=== PATIENT | male | born 1940 | race Caucasian/White ===

== ENCOUNTER 2017-06-10 09:36 | Inpatient (IN) | payer MEDICARE, MEDICAID ==
[~2017-06-10] VITALS: Ht 167.6 cm; Wt 80.0 kg
[2017-06-10] MEDS: ACCU-CHEK XX SCH (02:00)
[~2017-06-10 09:36] MED LIST: GLIP5TAB13 PO; METF500T4 PO
[2017-06-10] MEDS ORDERED: LIDOCAINE/MYLANTA 40 ML BTL PO STA (09:47)
[2017-06-10] MEDS ORDERED: FAMOTIDINE 20 MG TAB PO STA (09:47)
[2017-06-10] MEDS ORDERED: SOD CHLORIDE 0.9% 500 ML IV STA (09:47)
[2017-06-10] MEDS ORDERED: ONDANSETRON 4 MG INJ IV STA (09:47)
--- NOTE | 2017-06-10 09:54 | ERD ---
ER Documentation Chief Complaint Chief Complaint epigastric pain HPI This is a 76-year-old male with a history of autism, previous CVA, diabetes, hypertension, chronic kidney disease, issues with urinary retention who is presenting with epigastric and chest pain, nonradiating, waxing/waning for approximately 1 week. He does not endorse feeling sick recently. He has had no fever or chills. He has had no nausea or vomiting. He denies shortness of breath. He denies changing to bowel movements or urination. He reports that he took all of his medications this morning. He is perseverating and calling out for his mold filler and drainer, but he is redirectable. ROS All systems reviewed and are negative except as per history of present illness. Medications Home Meds Reported Medications Trazodone Hcl* (Trazodone Hcl*) 50 Mg Tablet, 100 MG PO QHS, #30 TAB 06/10/17 Alprazolam* (Alprazolam*) 0.25 Mg Tablet, 0.25 MG PO BID Y for ANXIETY, TAB 06/10/17 Lisinopril* (Lisinopril*) 20 Mg Tablet, 20 MG PO DAILY, #30 TAB 06/10/17 Metoprolol Succinate* (Toprol XL*) 100 Mg Tab.sr.24h, 100 MG PO DAILY, #30 TAB 06/10/17 Glipizide* (Glipizide*) 5 Mg Tablet, 5 MG PO AC BREAKFAST, TAB 04/02/15 Metformin Hcl* (Metformin Hcl*) 500 Mg Tablet, 500 MG PO BID WITH MEALS, TAB 04/02/15 Allergies Allergies: Coded Allergies: No Known Allergy (Unverified , 06/10/17) PMhx/Soc History of Surgery: Yes (RAdical prostatectomy) Anesthesia Reaction: No Hx Neurological Disorder: Yes (CVA) Hx Respiratory Disorders: No Hx Cardiac Disorders: Yes (HYPERTENSION) Hx Psychiatric Problems: Yes (MILD MENTAL RETARDATION) Hx Miscellaneous Medical Probl: Yes (S/P CVA, HTN, DM, URINARY RETENTION, CKD2) Hx Alcohol Use: No Hx Substance Use: No Hx Tobacco Use: No FmHx Family History: diabetes Physical Exam Vitals Vital Signs Date Time Temp Pulse Resp B/P Pulse Ox O2 Delivery O2 Flow Rate FiO2 06/10/17 19:55 64 20 127/50 99 Room Air 06/10/17 19:22 194/91 06/10/17 18:36 59 20 183/83 99 Room Air 06/10/17 17:45 68 20 183/80 100 Room Air 06/10/17 16:00 62 20 176/63 99 Room Air 06/10/17 11:05 61 18 185/100 99 Room Air 06/10/17 09:53 97.9 80 18 187/97 100 Physical Exam Const: No apparent distress, well-developed, well-nourished Head: Atraumatic Eyes: Normal Conjunctiva. Extraocular movements intact. ENT: Normal External Ears, Nose and Mouth. no teeth. Neck: Full range of motion. ~ No meningismus. Resp: Clear to auscultation bilaterally Cardio: Regular rate and rhythm, no murmurs. Patient is hypertensive. Abd: Soft, non distended. +epigastric tenderness. Normal bowel sounds Skin: No petechiae or rashes Back: No midline or flank tenderness Ext: No cyanosis, or edema Neur: Awake and alert. Cranial nerves intact. No facial droop. Normal strength and sensation in all extremities. Coordination with finger to nose normal. Psych: Normal Mood and Affect Result Diagram: 06/10/17 0900 06/10/17 09 Results 24 hrs Laboratory Tests Test 06/10/17 09:00 06/10/17 18:55 06/10/17 19:27 06/10/17 20:10 White Blood Count 10.710^3/ul Red Blood Count 4.7810^6/ul Hemoglobin 14.2g/dl Hematocrit 41.5% Mean Corpuscular Volume 86.8fl Mean Corpuscular Hemoglobin 29.7pg Mean Corpuscular Hemoglobin Concent 34.2g/dl Red Cell Distribution Width 12.1% Platelet Count 97333^3/UL Mean Platelet Volume 11.1fl Neutrophils % 82.5% Lymphocytes % 9.4% Monocytes % 6.8% Eosinophils % 0.5% Basophils % 0.4% Nucleated Red Blood Cells % 0.0/100WBC Neutrophils # 8.910^3/ul Lymphocytes # 1.010^3/ul Monocytes # 0.710^3/ul Eosinophils # 0.110^3/ul Basophils # 0.010^3/ul Nucleated Red Blood Cells # 0.010^3/ul Prothrombin Time 13.4Sec Prothrombin Time Ratio 1.0 INR International Normalized Ratio 1.02 Sodium Level 145mmol/L Potassium Level 3.4mmol/L Chloride Level 102mmol/L Carbon Dioxide Level 29mmol/L Anion Gap 17 Blood Urea Nitrogen 23mg/dl Creatinine 1.21mg/dl Glucose Level 175mg/dl Lactic Acid Level 2.0mmol/L Calcium Level 9.7mg/dl Total Bilirubin 0.4mg/dl Direct Bilirubin 0.00mg/dl Indirect Bilirubin 0.4mg/dl Aspartate Amino Transf (AST/SGOT) 20IU/L Alanine Aminotransferase (ALT/SGPT) 29IU/L Alkaline Phosphatase 48IU/L Troponin I 0.051ng/ml 0.050ng/ml Total Protein 6.9g/dl Albumin 4.2g/dl Globulin 2.70g/dl Albumin/Globulin Ratio 1.55 Lipase 93U/L Bedside Glucose 121mg/dL 99mg/dL Current Medications Medications (Trade) Dose Ordered Sig/Lucy Route PRN Reason Start Time Stop Time Status Last Admin Dose Admin Sodium Chloride (NS) 500 ml @ 500 mls/hr Q1H STAT IV 06/10/17 09:47 06/10/17 10:46 DC 06/10/17 10:17 Ondansetron HCl (Zofran Inj) 4 mg ONCE STAT IV 06/10/17 09:47 06/10/17 09:48 DC 06/10/17 10:19 Famotidine (Pepcid) 20 mg ONCE STAT PO 06/10/17 09:47 06/10/17 09:48 DC 06/10/17 10:16 Miscellaneous Medication (Gi Cocktail (2)) 40 ml ONCE STAT PO 06/10/17 09:47 06/10/17 09:48 DC 06/10/17 10:18 Lorazepam (Ativan) 0.5 mg ONCE ONCE IV 06/10/17 11:00 06/10/17 11:01 DC 06/10/17 10:39 Fentanyl (Sublimaze) 50 mcg ONCE ONCE IV 06/10/17 14:00 06/10/17 14:01 DC 06/10/17 13:56 Ondansetron HCl (Zofran Inj) 4 mg ER BRIDGE PRN IV NAUSEA AND/OR VOMITING 06/10/17 15:00 06/11/17 14:59 Acetaminophen (Tylenol Tab) 650 mg ER BRIDGE PRN PO MILD PAIN/FEVER 06/10/17 15:00 06/11/17 14:59 Ondansetron HCl (Zofran Inj) 4 mg Q6H PRN IV NAUSEA AND/OR VOMITING 06/10/17 15:00 Acetaminophen (Tylenol Tab) 650 mg Q6H PRN PO PAIN LEVEL 1-3 OR FEVER 06/10/17 15:00 Acetaminophen/ Hydrocodone Bitart ([place] (5/325)) 1 tab Q6H PRN PO MODERATE PAIN LEVEL 4-6 06/10/17 15:00 Acetaminophen/ Hydrocodone Bitart ([place] (5/325)) 2 tab Q6H PRN PO SEVERE PAIN LEVEL 7-10 06/10/17 15:00 Docusate Sodium (Colace) 100 mg Q12H PRN PO CONSTIPATION 06/10/17 15:00 Magnesium Hydroxide (Milk Of Mag) 30 ml DAILY PRN PO CONSTIPATION 06/10/17 15:00 Heparin Sodium (Porcine) (Heparin (5000 Units/0.5 ml)) 5,000 unit Q12 SC 06/10/17 21:00 Lisinopril (Zestril) 20 mg DAILY PO 06/11/17 09:00 Metoprolol Succinate (Toprol Xl) 50 mg DAILY PO 06/11/17 09:00 Miscellaneous Information (* Miscellaneous Pharmacy Order) Discontinue current oral sulfonylur... ONCE ONCE XX 06/10/17 15:00 06/10/17 15:08 DC Diagnostic Test (Pha) (Accu-Chek) 1 ea 02 XX 06/11/17 02:00 Diagnostic Test (Pha) (Accu-Chek) 1 ea 2 HOURS AFTER MEALS XX 06/10/17 20:00 Insulin Aspart (Novolog Insulin Pen) 4 unit WITH MEALS SC 06/10/17 18:00 06/10/17 18:00 Miscellaneous Information (* Miscellaneous Pharmacy Order) HYPOGLYCEMIA PROTOCOL w... ONCE ONCE XX 06/10/17 15:00 06/10/17 15:10 DC Trazodone HCl (Desyrel) 50 mg QHS PRN PO for insomnia 06/10/17 15:00 Potassium Chloride (Klor-Con 20) 20 meq ONCE STAT PO 06/10/17 15:00 06/10/17 15:16 DC 06/10/17 15:25 Lorazepam (Ativan) 0.5 mg ONCE ONCE IV 06/10/17 15:30 06/10/17 15:31 DC 06/10/17 15:25 Miscellaneous Information 1 ea NOTE XX 06/10/17 15:30 Glucose (Glutose) 15 gm Q15M PRN PO DECREASED GLUCOSE 06/10/17 15:30 Glucose (Glutose) 22.5 gm Q15M PRN PO DECREASED GLUCOSE 06/10/17 15:30 Dextrose (D50w Syringe) 25 ml Q15M PRN IV DECREASED GLUCOSE 06/10/17 15:30 Dextrose (D50w Syringe) 50 ml Q15M PRN IV DECREASED GLUCOSE 06/10/17 15:30 Glucagon (Glucagen) 1 mg Q15M PRN IM DECREASED GLUCOSE 06/10/17 15:30 Glucose (Glutose) 15 gm Q15M PRN BUCCAL DECREASED GLUCOSE 06/10/17 15:30 Lorazepam (Ativan) 0.5 mg Q4 PRN PO ANXIETY 06/10/17 16:00 Morphine Sulfate (morphine) 4 mg ONCE STAT IV 06/10/17 19:05 06/10/17 19:08 DC 06/10/17 19:55 Hydralazine HCl (Apresoline) 10 mg ONCE ONCE IV 06/10/17 20:00 06/10/17 20:01 DC 06/10/17 19:43 Procedures/MDM MDM Patient's presentation warrants further investigation. He does endorse abdominal and chest pain. An abdominal workup will be performed. A cardiac workup will also be performed to evaluate for any signs of atypical chest pain. LABS The patient's blood work was obtained and reviewed. The patient seemed shows no leukocytosis, but he does have a left shift. The patient is afebrile, and I do not suspect a systemic infection. The patient is not anemic today. The patient's platelet count is unremarkable. The patient's CMP shows mild hypokalemia. Creatinine is elevated but at baseline. The patient's troponin is also elevated, but this is elevated in the setting chronic kidney disease. The patient has normal hepatic function testing. INR is normal. Lactic is right at 2.0. EKG EKG read by me: Rate/Rhythm: Regular rate and rhythm at a rate of 75 Intervals: Normal RI, QRS, QTc. RBBB present. [place]: Normal Impression: No evidence of ischemia or arrhythmia IMAGING CXR FINDINGS: There is a right sided aortic arch. The heart is normal in size. The pulmonary vessels are normal in caliber. The lungs are clear. The costophrenic angles are sharp. The visualized bony thorax is unremarkable. IMPRESSION: No acute cardiopulmonary disease. Right sided aortic arch Electronically viewed and signed by .Wm Woodall MD, on 06/10/2017 10:04 CT Abd/Pelvis IMPRESSION: 1. Cholelithiasis. 2. Advanced arteriosclerosis in the mesenteric and renal arteries. 3. Mild atherosclerosis of the aorta. 4. Multiple bilateral sub centimeter nonobstructive renal calculi 5. Satisfactory position of Silveira catheter. 6. Nonvisualization of prostate gland. Surgical domenico and prostate bed suggesting previous prostatectomy. 7. No mass, lymphadenopathy, or focal acute inflammatory process is identified. Electronically viewed and signed by .Bobby Montalvo MD, MD on 06/10/2017 18: 38 TREATMENT/DISPOSITION The patient was very anxious in the room as his friend was not immediately present in the ER. He started to become hypertensive as well, though he reports taking all of his morning medications. He was given ativan to help calm his nerves. His mold filler and drainer also arrived which also helped to calm him. His blood pressure improved significantly. However, his pain persisted. The patient's lactic acid was at 2.0 which is borderline. A CT of his abdomen and pelvis was performed that did not reveal an obvious etiology of his epigastric pain. The patient's troponin is elevated. While this may be attributed to his poor renal function, a cardiac etiology must be ruled out. The patient will be admitted for further evaluation and management. The patient was admitted to his PCP group as per his insurance status at 14:30 on June 10, 2017. Departure Diagnosis: Primary Impression: Epigastric abdominal pain Additional Impressions: Chest pain Chest pain type: unspecified Qualified Code: R07.9 - Chest pain, unspecified type CKD (chronic kidney disease) Chronic kidney disease stage: unspecified stage Qualified Code: N18.9 - Chronic kidney disease, unspecified CKD stage Elevated troponin Condition: MIKE Perrin MD Jun 10, 2017 09:54
--- NOTE | 2017-06-10 10:04 | RADRPT ---
PROCEDURE: Chest x-ray CLINICAL INDICATION: Abdominal pain TECHNIQUE: Chest single view COMPARISON: 04/02/2015 FINDINGS: There is a right sided aortic arch. The heart is normal in size. The pulmonary vessels are normal i n caliber. The lungs are clear. The costophrenic angles are sharp. The visualized bony thorax is unremarkable. IMPRESSION: No acute cardiopulmonary disease. Right sided aortic arch RPTAT: HH .Wm Woodall MD, MD Date Time Electronically viewed and signed by .Wm Woodall MD, on 06/10/2017 10:04 .W/
[2017-06-10] MEDS ORDERED: LORAZEPAM 2 MG INJ IV ONE ×2 (11:00→15:30)
[2017-06-10] MEDS ORDERED: METO-336 PO (13:48)
[2017-06-10] MEDS ORDERED: LISI20TA11 PO (13:50)
[2017-06-10] MEDS ORDERED: TRAZ50TA18 PO (13:51)
[2017-06-10] MEDS ORDERED: ALPR0.254 PO (13:51)
[2017-06-10] MEDS ORDERED: FENTAnyl 50 MCG/ML VIAL IV ONE (14:00)
[2017-06-10] MEDS ORDERED: ACETAMINOPHEN 325 MG TAB PO PRN ×2 (15:00)
[2017-06-10] MEDS ORDERED: traZODone 50 MG TAB PO PRN (15:00)
[2017-06-10] MEDS ORDERED: DOCUSATE SODIUM 100 MG CAP PO PRN (15:00)
[2017-06-10] MEDS ORDERED: Discontinue current oral sulfonylureas (glyburide, glipizide, and/or glimepiride) prior to XX ONE (15:00)
[2017-06-10] MEDS ORDERED: HYPOGLYCEMIA PROTOCOL when Glucose is <70 mg/dL or symptomatic <90 mg/dL. XX ONE (15:00)
[2017-06-10] MEDS ORDERED: MAGNESIUM HYDROXIDE 30ML CUP PO PRN (15:00)
[2017-06-10] MEDS ORDERED: POTASSIUM CHLORIDE (SR) 20 MEQ TAB PO STA (15:00)
[2017-06-10] MEDS ORDERED: ONDANSETRON 4 MG INJ IV PRN ×2 (15:00)
[2017-06-10] MEDS ORDERED: GLUCAGON 1 MG INJ IM PRN (15:30)
[2017-06-10] MEDS ORDERED: GLUCOSE GEL 15 GRAM TUBE PO PRN ×2 (15:30)
[2017-06-10] MEDS ORDERED: DEXTROSE 50% 50 ML SYRINGE IV PRN ×2 (15:30)
[2017-06-10] MEDS ORDERED: GLUCOSE GEL 15 GRAM TUBE BUCCAL PRN (15:30)
--- NOTE | 2017-06-10 15:46 | HP ---
Date/Time of Note Date/Time of Note DATE: 06/10/17 TIME: 15:34 Assessment/Plan VTE Prophylaxis VTE Prophylaxis Intervention: heparin Assessment/Plan Chief Complaint/Hosp Course 76 y/o male with autism, DMII, HTN, CKD, h/o CVA admitted for epigastric pain and chest pain. Problems: Assessment/Plan #chest pain/abdominal pain-patient is poor historian. reassuring that vital signs stable, he is non toxic appearing, benign abdominal exam. Labs also not concerning for acute abdominal process. Initial trop and EKG not concerning for ACS. -will monitor on tele overnight. -will trend EKG/trop -will obtain UA, will repeat cbc, cmp in am #hypokalemia-mild -will replete and monitor #anxiety-ED setting not helping -ativan prn #HTN-controlled as outpatient, will initially elevated -home meds -pain control #DMII -sliding scale #CKD-baseline 1.2-1.4 -avoid nephrotoxic meds -maintain euvolemia Dispo: pending clinical stability/improvement can possibly be discharged tomorrow. HPI/ROS Admit Date/Time Admit Date/Time 06/10/2017 Hx of Present Illness Patient brought to ER by ambulance this am for epigastric pain and chest pain. Patient is a poor historian. Told ER that symptoms started about a week ago. Told me started sometime today. Denies fevers, chills, nausea, vomiting, sob, cough. Endorses diarrhea but cant quantify or qualify stools. Endorses that abdominal pain epigastric, intermittent. Cant really qualify his chest pain. His BP was elevated in the ER on arrival, improved when pain controlled with fentanyl and anxiety controlled with ativan. CBC, CMP, Lipase, trop, lactate done in ER. Notable for trop 0.05, lipase 93, K 3.4, lactic acid 2. Other values normal. EKG in ER with some motion artifact. TWI v1, nsr, nml axis. Some other non specific ST changes but no Q or ST elevations. PMH/Family/Social Past Medical History Autism spectrum disorder, DMII, HTN, h/o CVA, CKD III baseline cr 1.2-1.4 Past Surgical History vitrectomy 2010, radical prostatectomy Family History Significant Family History: no pertinent family hx Social History Alcohol Use: none Smoking Status: Never smoker Drug Use: none Exam/Review of Systems Vital Signs Vitals Vital Signs Date Time Temp Pulse Resp B/P Pulse Ox O2 Delivery O2 Flow Rate FiO2 06/10/17 11:05 61 18 185/100 99 Room Air 06/10/17 09:53 97.9 Exam Exam Gen: mild distress due to anxiety/pain, WD/WN HEENT: OP clear, mmm CV: distant heart sounds, couldnt auscultate well given noise in ED. Limited exam but rrr, nml s1/s2, no m/r/g appreciated pulm: CTAB on anterior and posterio exam abd: soft, nt/ND, +BS, no rebound, no guarding, rovsing negative Ext: no c/c/e Labs Result Diagram: 06/10/1789906/10/17 09 Medications Medications Current Medications Ondansetron HCl (Zofran Inj) 4 mg Q6H PRN IV NAUSEA AND/OR VOMITING; Start at 15:00 Acetaminophen (Tylenol Tab) 650 mg Q6H PRN PO PAIN LEVEL 1-3 OR FEVER; Start 06/10/17 at 15:00 Acetaminophen/ Hydrocodone Bitart ([place] (5/325)) 1 tab Q6H PRN PO MODERATE PAIN LEVEL 4-6; Start 06/10/17 at 15:00 Acetaminophen/ Hydrocodone Bitart ([place] (5/325)) 2 tab Q6H PRN PO SEVERE PAIN LEVEL 7-10; Start 06/10/17 at 15:00 Docusate Sodium (Colace) 100 mg Q12H PRN PO CONSTIPATION; Start 06/10/17 at 15 :00 Magnesium Hydroxide (Milk Of Mag) 30 ml DAILY PRN PO CONSTIPATION; Start 06/10 at 15:00 Heparin Sodium (Porcine) (Heparin (5000 Units/0.5 ml)) 5,000 unit Q12 SC ; Start 06/10/17 at 21:00 Lisinopril (Zestril) 20 mg DAILY PO ; Start 06/11/17 at 09:00 Metoprolol Succinate (Toprol Xl) 50 mg DAILY PO ; Start 06/11/17 at 09:00 Diagnostic Test (Pha) (Accu-Chek) 1 ea 02 XX ; Start 06/11/17 at 02:00 Trazodone HCl (Desyrel) 50 mg QHS PRN PO for insomnia; Start 06/10/17 at 15:00 Miscellaneous Information 1 ea NOTE XX ; Start 06/10/17 at 15:30 Glucose (Glutose) 15 gm Q15M PRN PO DECREASED GLUCOSE; Start 06/10/17 at 15:30 Glucose (Glutose) 22.5 gm Q15M PRN PO DECREASED GLUCOSE; Start 06/10/17 at 15: 30 Dextrose (D50w Syringe) 25 ml Q15M PRN IV DECREASED GLUCOSE; Start 06/10/17 at 15:30 Dextrose (D50w Syringe) 50 ml Q15M PRN IV DECREASED GLUCOSE; Start 06/10/17 at 15:30 Glucagon (Glucagen) 1 mg Q15M PRN IM DECREASED GLUCOSE; Start 06/10/17 at 15: 30 Glucose (Glutose) 15 gm Q15M PRN BUCCAL DECREASED GLUCOSE; Start 06/10/17 at 15:30 VICKIE BOLAÑOS MD Jun 10, 2017 15:46
[2017-06-10] MEDS ORDERED: LORAZEPAM 0.5 MG TAB PO PRN (16:00)
[2017-06-10] MEDS: INSULIN ASPART [NOVOLOG] 3 ML PEN SC SCH (18:00)
--- NOTE | 2017-06-10 18:38 | RADRPT ---
PROCEDURE: CT Abdomen and Pelvis without contrast. CLINICAL INDICATION: Epigastric pain TECHNIQUE: CT scan of the abdomen and pelvis without contrast was performed on a multidetector hig h-resolution CT scanner. Coronal and sagittal reformatted images were obtained from the axial [facility] e images. Images were reviewed on a high-resolution PACS workstation. One or more of the following d ose reduction techniques were used: Automated exposure control, adjustment of the mA and/or kV accor ding to patient size and use of iterative reconstruction technique. The total exam CTDI equals 9.9 m Gy and the total exam DLP equals 570 mGy-cm. COMPARISON: CT dated 04/02/2015 FINDINGS: CT abdomen: The lung bases are clear. The heart size is normal. No pericardial effusion identified. The liver demonstrates normal size and density. No liver mass identified. The gallbladder contains a 1 cm calculus at the neck.. There is no intrahepatic or extrahepatic biliary dilatation. The spleen is normal in size. No focal splenic abnormality identified. No gross abnormality of the stomach is identified. The pancreas is unremarkable. The adrenal glands appear normal. The kidneys are unremarkable. There is no evidence of renal mass, renal calculi or hydronephrosis. The aorta is of normal caliber. Aortic and mesenteric vascular calcifications are present. No adenopathy identified. The bowel and mesentery are unremarkable. CT pelvis: The rectal vault is distended with stool and measures 7 cm. Surgical domenico are seen in the prostate bed. The urinary bladder is decompressed by Silveira catheter and is not well evaluated. The pelvic organs a re normal. The pelvic sidewalls and inguinal regions are clear. The sigmoid colon and rectum are remarkable for sigmoid diverticulosis. No adenopathy, free fluid or inflammatory change identified. The osseous structures are remarkable for degenerative spondylosis of the spine. No osteolytic or osteoblastic lesion is detected. IMPRESSION: 1. Cholelithiasis. 2. Advanced arteriosclerosis in the mesenteric and renal arteries. 3. Mild atherosclerosis of the aorta. 4. Multiple bilateral sub centimeter nonobstructive renal calculi 5. Satisfactory position of Silveira catheter. 6. Nonvisualization of prostate gland. Surgical domenico and prostate bed suggesting previous prosta tectomy. 7. No mass, lymphadenopathy, or focal acute inflammatory process is identified. RPTAT: QQ .Bobby Montalvo MD, MD Date Time Electronically viewed and signed by .Bobby Montalvo MD, MD on 06/10/2017 18:38 ./
[2017-06-10] MEDS ORDERED: morphine 4 MG/ML VIAL IV STA (19:05)
[2017-06-10] MEDS ORDERED: hydrALAzine 20 MG INJ IV ONE (20:00)
[2017-06-10 20:30] VITALS: BP 157/70; PULSE 61; Ht 167.6 cm; Wt 80.0 kg
[2017-06-10 21:23] VITALS: PULSE 62
[2017-06-10] MEDS: HEPARIN 5,000 UNIT/0.5 ML VIAL SC SCH (23:14)
[2017-06-10 23:44] VITALS: BP 149/70; RESP 20
[2017-06-11] VITALS (12 sets, daily range): BP systolic 93–176; BP diastolic 51–89; PULSE 57–81; RESP 19–20
[2017-06-11] MEDS: ACCU-CHEK XX SCH ×4 (02:00→20:34)
[2017-06-11] MEDS: HYDROCODONE/APAP (5/325) TAB PO PRN ×4 (05:54→19:06)
--- NOTE | 2017-06-11 07:56 | CONS ---
Date/Time of Note Date/Time of Note DATE: 06/11/17 TIME: 07:51 Assessment/Plan Assessment/Plan Problems: (1) CKD stage 2 due to type 2 diabetes mellitus Comment: f/u labs pd... were at baseline yesterday (2) HTN (hypertension) Comment: better (3) Type 2 diabetes mellitus Comment: excellent control (4) Epigastric abdominal pain Status: Acute Comment: resolved (5) Ataxia Comment: post cerebellar CVA.. will get PT eval/rx Consultation Date/Type/Reason Admit Date/Time Jun 10, 2017 at 14:34 Initial Consult Date Type of Consultation: neph 24 HR Interval Summary Free Text/Dictation denies any pain this am... still a bit sleepy tho Exam/Review of Systems Vital Signs Vitals Vital Signs Date Time Temp Pulse Resp B/P Pulse Ox O2 Delivery O2 Flow Rate FiO2 06/11/17 04:17 59 06/11/17 03:56 98.0 19 153/89 95 06/10/17 20:30 Room Air Exam Constitutional: alert Psych: no complaints Neck: supple Respiratory: clear to auscultation Cardiovascular: regular rate and rhythm Gastrointestinal: soft Extremities: normal pulses Results Result Diagram: 06/10/17 0900 06/10/17 0900 Results 24 hrs Laboratory Tests Test 06/10/17 09:00 06/10/17 18:55 06/10/17 19:27 06/10/17 20:10 White Blood Count 10.7 # Red Blood Count 4.78 # Hemoglobin 14.2 # Hematocrit 41.5 L Mean Corpuscular Volume 86.8 Mean Corpuscular Hemoglobin 29.7 Mean Corpuscular Hemoglobin Concent 34.2 Red Cell Distribution Width 12.1 Platelet Count 229 Mean Platelet Volume 11.1 #H Neutrophils % 82.5 H Lymphocytes % 9.4 L Monocytes % 6.8 Eosinophils % 0.5 Basophils % 0.4 Nucleated Red Blood Cells % 0.0 Neutrophils # 8.9 H Lymphocytes # 1.0 Monocytes # 0.7 Eosinophils # 0.1 Basophils # 0.0 Nucleated Red Blood Cells # 0.0 Prothrombin Time 13.4 Prothrombin Time Ratio 1.0 INR International Normalized Ratio 1.02 Sodium Level 145 H Potassium Level 3.4 L Chloride Level 102 Carbon Dioxide Level 29 Anion Gap 17 H Blood Urea Nitrogen 23 H Creatinine 1.21 Glucose Level 175 Lactic Acid Level 2.0 Calcium Level 9.7 Total Bilirubin 0.4 Direct Bilirubin 0.00 Indirect Bilirubin 0.4 Aspartate Amino Transf (AST/SGOT) 20 Alanine Aminotransferase (ALT/SGPT) 29 Alkaline Phosphatase 48 Troponin I 0.051 0.050 Total Protein 6.9 Albumin 4.2 Globulin 2.70 Albumin/Globulin Ratio 1.55 Lipase 93 Bedside Glucose 121 99 Test 06/11/17 02:02 Bedside Glucose 118 Medications Medications Current Medications Ondansetron HCl (Zofran Inj) 4 mg Q6H PRN IV NAUSEA AND/OR VOMITING; Start at 15:00 Acetaminophen (Tylenol Tab) 650 mg Q6H PRN PO PAIN LEVEL 1-3 OR FEVER; Start 06/10/17 at 15:00 Acetaminophen/ Hydrocodone Bitart ([place] (5/325)) 1 tab Q6H PRN PO MODERATE PAIN LEVEL 4-6; Start 06/10/17 at 15:00 Acetaminophen/ Hydrocodone Bitart ([place] (5/325)) 2 tab Q6H PRN PO SEVERE PAIN LEVEL 7-10 Last administered on 06/11/17 05:54; Admin Dose 2 TAB; Start 06/10 at 15:00 Docusate Sodium (Colace) 100 mg Q12H PRN PO CONSTIPATION; Start 06/10/17 at 15 :00 Magnesium Hydroxide (Milk Of Mag) 30 ml DAILY PRN PO CONSTIPATION; Start 06/10 at 15:00 Heparin Sodium (Porcine) (Heparin (5000 Units/0.5 ml)) 5,000 unit Q12 SC Last administered on 06/10/17 23:14; Admin Dose 5,000 UNIT; Start 06/10/17 at 21: 00 Lisinopril (Zestril) 20 mg DAILY PO ; Start 06/11/17 at 09:00 Metoprolol Succinate (Toprol Xl) 50 mg DAILY PO ; Start 06/11/17 at 09:00 Diagnostic Test (Pha) (Accu-Chek) 1 ea 02 XX ; Start 06/11/17 at 02:00 Trazodone HCl (Desyrel) 50 mg QHS PRN PO for insomnia; Start 06/10/17 at 15:00 Miscellaneous Information 1 ea NOTE XX ; Start 06/10/17 at 15:30 Glucose (Glutose) 15 gm Q15M PRN PO DECREASED GLUCOSE; Start 06/10/17 at 15:30 Glucose (Glutose) 22.5 gm Q15M PRN PO DECREASED GLUCOSE; Start 06/10/17 at 15: 30 Dextrose (D50w Syringe) 25 ml Q15M PRN IV DECREASED GLUCOSE; Start 06/10/17 at 15:30 Dextrose (D50w Syringe) 50 ml Q15M PRN IV DECREASED GLUCOSE; Start 06/10/17 at 15:30 Glucagon (Glucagen) 1 mg Q15M PRN IM DECREASED GLUCOSE; Start 06/10/17 at 15: 30 Glucose (Glutose) 15 gm Q15M PRN BUCCAL DECREASED GLUCOSE; Start 06/10/17 at 15:30 Lorazepam (Ativan) 0.5 mg Q4 PRN PO ANXIETY; Start 06/10/17 at 16:00 Influenza Virus Vaccine (Fluzone) 0.5 ml ONCE ONCE IM* ; Start 06/12/17 at 09: 00; Stop 06/12/17 at 09:01 YESSENIA MANNING MD Jun 11, 2017 07:56
[2017-06-11] MEDS: INSULIN ASPART [NOVOLOG] 3 ML PEN SC SCH ×3 (08:23→17:50)
[2017-06-11] MEDS: HEPARIN 5,000 UNIT/0.5 ML VIAL SC SCH ×2 (08:24→20:30)
[2017-06-11] MEDS: METOPROLOL (XL) 50 MG TAB PO SCH (08:26)
[2017-06-11] MEDS ORDERED: LISINOPRIL 20 MG TAB PO SCH (09:00)
[2017-06-11] MEDS ORDERED: POTASSIUM CHLORIDE (SR) 20 MEQ TAB PO STA (09:56)
[2017-06-11] MEDS: POTASSIUM CHLORIDE (SR) 20 MEQ TAB PO SCH ×3 (14:00→21:06)
[2017-06-11] MEDS ORDERED: LORAZEPAM 0.5 MG TAB PO ONE (15:00)
[2017-06-11] MEDS: LORAZEPAM 1 MG TAB PO PRN (20:21)
[2017-06-12] VITALS (13 sets, daily range): BP systolic 138–195; BP diastolic 64–84; PULSE 51–74; RESP 16–20
[2017-06-12] MEDS: ACCU-CHEK XX SCH ×4 (02:00→20:05)
[2017-06-12] MEDS: POTASSIUM CHLORIDE (SR) 20 MEQ TAB PO SCH (04:13)
[2017-06-12] MEDS: HYDROCODONE/APAP (5/325) TAB PO PRN (06:20)
--- NOTE | 2017-06-12 07:36 | CONS ---
Date/Time of Note Date/Time of Note DATE: 06/12/17 TIME: 07:31 Assessment/Plan Assessment/Plan Problems: (1) Cholelithiasis Comment: abd is soft and NT... CT with no ductal dilatation and LFTs have been nl... will get JOVANY for comleteness... labs today pd (2) Agitation Comment: better with higher dose ativan (3) HTN (hypertension) Comment: exacerbation with agaitation... will update meds (4) Type 2 diabetes mellitus Comment: sugars are perfect (5) CKD stage 2 due to type 2 diabetes mellitus Comment: stable... mild... good UOP (6) Epigastric abdominal pain Status: Acute Comment: by history... totally benign exam... will get JOVANY and f/u this am labs Consultation Date/Type/Reason Admit Date/Time Jun 10, 2017 at 14:34 Type of Consultation: neph 24 HR Interval Summary Free Text/Dictation agaitated, and c/o pain... diffuely, stomach... no fever.. no n/v... labs have been fine x low K...sugars controlled Exam/Review of Systems Vital Signs Vitals Vital Signs Date Time Temp Pulse Resp B/P Pulse Ox O2 Delivery O2 Flow Rate FiO2 06/12/17 04:14 51 06/12/17 04:04 98.8 20 138/68 97 06/11/17 14:04 Room Air Intake and Output 06/11/17 06/11/17 06/12/17 15:00 23:00 07:00 Intake Total 600 ml 200 ml Output Total 450 ml 400 ml Balance 150 ml -200 ml Exam Constitutional: alert Psych: anxiety, confusion Neck: supple Respiratory: clear to auscultation Cardiovascular: regular rate and rhythm Gastrointestinal: bowel sounds (nl... nontender), nl liver, spleen, non-tender , soft Extremities: normal pulses Results Result Diagram: 06/11/17 0810 06/11/17 0810 Results 24 hrs Laboratory Tests Test 06/11/17 08:10 06/11/17 10:13 06/11/17 11:45 06/11/17 14:02 White Blood Count 8.4 # Red Blood Count 4.26 L Hemoglobin 12.2 L Hematocrit 37.4 L Mean Corpuscular Volume 87.8 Mean Corpuscular Hemoglobin 28.6 L Mean Corpuscular Hemoglobin Concent 32.6 Red Cell Distribution Width 12.8 Platelet Count 211 Mean Platelet Volume 11.2 H Neutrophils % 77.2 H Lymphocytes % 12.4 L Monocytes % 8.6 Eosinophils % 1.0 Basophils % 0.6 Nucleated Red Blood Cells % 0.0 Neutrophils # 6.5 Lymphocytes # 1.0 Monocytes # 0.7 Eosinophils # 0.1 Basophils # 0.1 Nucleated Red Blood Cells # 0.0 Sodium Level 144 Potassium Level 3.0 L Chloride Level 104 Carbon Dioxide Level 30 Anion Gap 13 Blood Urea Nitrogen 19 Creatinine 1.12 Glucose Level 115 # Bedside Glucose 116 103 142 162 Calcium Level 8.9 Total Bilirubin 0.4 Direct Bilirubin 0.00 Indirect Bilirubin 0.4 Aspartate Amino Transf (AST/SGOT) 24 Alanine Aminotransferase (ALT/SGPT) 30 Alkaline Phosphatase 45 Total Protein 6.5 Albumin 3.7 Globulin 2.80 Albumin/Globulin Ratio 1.32 Test 06/11/17 17:47 06/11/17 20:33 Bedside Glucose 170 91 Medications Medications Current Medications Ondansetron HCl (Zofran Inj) 4 mg Q6H PRN IV NAUSEA AND/OR VOMITING; Start at 15:00 Acetaminophen (Tylenol Tab) 650 mg Q6H PRN PO PAIN LEVEL 1-3 OR FEVER Last administered on 06/11/17 14:00; Admin Dose 650 MG; Start 06/10/17 at 15:00 Acetaminophen/ Hydrocodone Bitart ([place] (5/325)) 1 tab Q6H PRN PO MODERATE PAIN LEVEL 4-6; Start 06/10/17 at 15:00 Acetaminophen/ Hydrocodone Bitart ([place] (5/325)) 2 tab Q6H PRN PO SEVERE PAIN LEVEL 7-10 Last administered on 06/12/17 06:20; Admin Dose 2 TAB; Start 06/10 at 15:00 Docusate Sodium (Colace) 100 mg Q12H PRN PO CONSTIPATION; Start 06/10/17 at 15 :00 Magnesium Hydroxide (Milk Of Mag) 30 ml DAILY PRN PO CONSTIPATION; Start 06/10 at 15:00 Heparin Sodium (Porcine) (Heparin (5000 Units/0.5 ml)) 5,000 unit Q12 SC Last administered on 10/23/17at 20:30; Admin Dose 5,000 UNIT; Start 06/10/17 at 21: 00 Lisinopril (Zestril) 20 mg DAILY PO Last administered on 06/11/17 08:26; Admin Dose 20 MG; Start 06/11/17 at 09:00 Metoprolol Succinate (Toprol Xl) 50 mg DAILY PO Last administered on 08:26; Admin Dose 50 MG; Start 06/11/17 at 09:00 Diagnostic Test (Pha) (Accu-Chek) 1 ea 02 XX ; Start 06/11/17 at 02:00 Trazodone HCl (Desyrel) 50 mg QHS PRN PO for insomnia; Start 06/10/17 at 15:00 Miscellaneous Information 1 ea NOTE XX ; Start 06/10/17 at 15:30 Glucose (Glutose) 15 gm Q15M PRN PO DECREASED GLUCOSE; Start 06/10/17 at 15:30 Glucose (Glutose) 22.5 gm Q15M PRN PO DECREASED GLUCOSE; Start 06/10/17 at 15: 30 Dextrose (D50w Syringe) 25 ml Q15M PRN IV DECREASED GLUCOSE; Start 06/10/17 at 15:30 Dextrose (D50w Syringe) 50 ml Q15M PRN IV DECREASED GLUCOSE; Start 06/10/17 at 15:30 Glucagon (Glucagen) 1 mg Q15M PRN IM DECREASED GLUCOSE; Start 06/10/17 at 15: 30 Glucose (Glutose) 15 gm Q15M PRN BUCCAL DECREASED GLUCOSE; Start 06/10/17 at 15:30 Influenza Virus Vaccine (Fluzone) 0.5 ml ONCE ONCE IM* ; Start 06/12/17 at 09: 00; Stop 06/12/17 at 09:01 Lorazepam (Ativan) 1 mg Q8H PRN PO ANXIETY Last administered on 06/11/17 20: 21; Admin Dose 1 MG; Start 06/11/17 at 15:00 Morphine Sulfate (morphine) 2 mg Q3 PRN IV SEVERE PAIN LEVEL 7-10; Start 06/11 at 21:00 YESSENIA MANNING MD Jun 12, 2017 07:36
[2017-06-12] MEDS: INSULIN ASPART [NOVOLOG] 3 ML PEN SC SCH ×3 (08:00→17:57)
[2017-06-12] MEDS: METOPROLOL (XL) 50 MG TAB PO SCH (08:07)
[2017-06-12] MEDS: LISINOPRIL 20 MG TAB PO SCH (08:08)
[2017-06-12] MEDS: HEPARIN 5,000 UNIT/0.5 ML VIAL SC SCH ×2 (08:22→21:07)
[2017-06-12] MEDS ORDERED: INFLUENZA VIRUS VACCINE 0.5 ML (DISPENSING) IM* ONE (09:00)
--- NOTE | 2017-06-12 11:28 | RADRPT ---
PROCEDURE: US Abdomen Complete. CLINICAL INDICATION: abdominal pain, cholelithiasis r/o cholecystitis,npo TECHNIQUE: Multiple real-time images were acquired of the patient's abdomen and retroperitoneum ut ilizing a high resolution transducer. COMPARISON: CT abdomen/pelvis from 06/10/2017 FINDINGS: The liver measures 14.6 cm and demonstrates normal echogenicity. There is no intrahepatic biliary ductal dilatation. The extrahepatic common bile duct measures 4 mm. The main portal vein is patent w ith proper directional flow. There is cholelithiasis. There is no gallbladder wall thickening or pericholecystic fluid. The pancreas is not well visualized. The spleen measures 9.1 cm. The right kidney measures 10.4 cm. The left kidney measures 10.9 cm. There are multiple sub centimet er shadowing echogenic lesions in the right kidney consistent with nonobstructing calculi. There is no right hydronephrosis. There is mild left hydronephrosis. The visualized abdominal aorta and IVC are grossly unremarkable. IMPRESSION: Cholelithiasis without evidence of acute cholecystitis. Normal CBD. Mild left hydronephrosis. A parapelvic renal cyst is identified in the lower pole of the left kidney on recent CT study although this does not account for mild hydronephrosis/fullness of the upper lef t renal collecting system. Clinical correlation is recommended. Multiple sub-centimeter nonobstructing right renal calculi are again noted which are better demonstr ated on the recent CT study. No right hydronephrosis. RPTAT: EE Physician Bree Date Time Electronically viewed and signed by Physician Bree on 06/12/2017 11:28 RA/
[2017-06-12] MEDS: morphine 2 MG INJ IV PRN ×2 (11:37→21:15)
[2017-06-12] MEDS: LORAZEPAM 1 MG TAB PO PRN (13:36)
[2017-06-12] MEDS: NIFEdipine (XL) 30 MG TAB PO SCH (21:07)
--- NOTE | 2017-06-12 22:38 | RADRPT ---
Vent Rate: 67 bpm RR Interval: 0 msec PA Interval: 164 msec QRS Duration: 138 msec QT Interval: 470 msec QTC Interval: 496 msec P-R-T [place]: 66 - 71 - 45 degrees Normal sinus rhythm Right bundle branch block Abnormal ECG Electronically Signed By: Emmanuel Chavez [id number]
--- NOTE | 2017-06-12 22:38 | RADRPT ---
Vent Rate: 67 bpm RR Interval: 0 msec ND Interval: 164 msec QRS Duration: 138 msec QT Interval: 470 msec QTC Interval: 496 msec P-R-T [place]: 66 - 71 - 45 degrees Normal sinus rhythm Right bundle branch block Abnormal ECG Electronically Signed By: Emmanuel Chavez [id number]
--- NOTE | 2017-06-12 22:38 | RADRPT ---
Vent Rate: 67 bpm RR Interval: 0 msec MO Interval: 164 msec QRS Duration: 138 msec QT Interval: 470 msec QTC Interval: 496 msec P-R-T [place]: 66 - 71 - 45 degrees Normal sinus rhythm Right bundle branch block Abnormal ECG Electronically Signed By: Emmanuel Chavez [id number]
[2017-06-13] VITALS (11 sets, daily range): BP systolic 106–215; BP diastolic 46–93; PULSE 43–68; RESP 16–20
[2017-06-13] MEDS: ACCU-CHEK XX SCH ×4 (01:52→20:05)
--- NOTE | 2017-06-13 08:21 | PN ---
Date/Time of Note Date/Time of Note DATE: 06/13/17 TIME: 08:18 Assessment/Plan VTE Prophylaxis VTE Prophylaxis Intervention: other Lines/Catheters IV Catheter Type (from Nrsg): Saline Lock Urinary Cath still in place: Yes Reason Cath still needed: urinary retention Assessment/Plan Assessment/Plan 1. Generalized pain is better today, cause unclear, will obtain Sed rate. 2. HBP, with the addition of Adalat bid his BP is now well controlled. 3. DM. sugar control is acceptable. 4. Renal insuff is stable, ultz and ct scan results reviewed. Subjective 24 Hr Interval Summary Respiratory: No cough, No shortness of breath Cardiovascular: No chest pain Gastrointestinal: no complaints Genitourinary: other (eid in place) Musculoskeletal: No back pain Neurologic: No headache Exam/Review of Systems Vital Signs Vitals Vital Signs Date Time Temp Pulse Resp B/P Pulse Ox O2 Delivery O2 Flow Rate FiO2 06/13/17 07:26 97.6 50 16 133/63 100 06/11/17 14:04 Room Air Intake and Output 06/12/17 06/12/17 06/13/17 15:00 23:00 07:00 Intake Total 200 ml 400 ml Output Total 300 ml 400 ml Balance -100 ml 0 ml Exam Neck: No jvd Respiratory: clear to auscultation Cardiovascular: regular rate and rhythm Gastrointestinal: soft Extremities: No edema (and no calf tend) Results Result Diagram: 06/12/17 0740 06/12/17 0737 Results 24 hrs Laboratory Tests Test 06/12/17 11:42 06/12/17 14:39 06/12/17 17:27 06/12/17 21:05 Bedside Glucose 110 110 120 120 Medications Medications Current Medications Ondansetron HCl (Zofran Inj) 4 mg Q6H PRN IV NAUSEA AND/OR VOMITING; Start at 15:00 Acetaminophen (Tylenol Tab) 650 mg Q6H PRN PO PAIN LEVEL 1-3 OR FEVER Last administered on 06/11/17t 14:00; Admin Dose 650 MG; Start 06/10/17 at 15:00 Acetaminophen/ Hydrocodone Bitart ([place] (5/325)) 1 tab Q6H PRN PO MODERATE PAIN LEVEL 4-6; Start 06/10/17 at 15:00 Acetaminophen/ Hydrocodone Bitart ([place] (5/325)) 2 tab Q6H PRN PO SEVERE PAIN LEVEL 7-10 Last administered on 06/12/17 06:20; Admin Dose 2 TAB; Start 06/10 at 15:00 Docusate Sodium (Colace) 100 mg Q12H PRN PO CONSTIPATION; Start 06/10/17 at 15 :00 Magnesium Hydroxide (Milk Of Mag) 30 ml DAILY PRN PO CONSTIPATION; Start 06/10 at 15:00 Heparin Sodium (Porcine) (Heparin (5000 Units/0.5 ml)) 5,000 unit Q12 SC Last administered on 06/12/17 21:07; Admin Dose 5,000 UNIT; Start 06/10/17 at 21: 00 Metoprolol Succinate (Toprol Xl) 50 mg DAILY PO Last administered on 08:07; Admin Dose 50 MG; Start 06/11/17 at 09:00 Diagnostic Test (Pha) (Accu-Chek) 1 ea 02 XX ; Start 06/11/17 at 02:00 Trazodone HCl (Desyrel) 50 mg QHS PRN PO for insomnia; Start 06/10/17 at 15:00 Miscellaneous Information 1 ea NOTE XX ; Start 06/10/17 at 15:30 Glucose (Glutose) 15 gm Q15M PRN PO DECREASED GLUCOSE; Start 06/10/17 at 15:30 Glucose (Glutose) 22.5 gm Q15M PRN PO DECREASED GLUCOSE; Start 06/10/17 at 15: 30 Dextrose (D50w Syringe) 25 ml Q15M PRN IV DECREASED GLUCOSE; Start 06/10/17 at 15:30 Dextrose (D50w Syringe) 50 ml Q15M PRN IV DECREASED GLUCOSE; Start 06/10/17 at 15:30 Glucagon (Glucagen) 1 mg Q15M PRN IM DECREASED GLUCOSE; Start 06/10/17 at 15: 30 Glucose (Glutose) 15 gm Q15M PRN BUCCAL DECREASED GLUCOSE; Start 06/10/17 at 15:30 Lorazepam (Ativan) 1 mg Q8H PRN PO ANXIETY Last administered on 06/12/17 13: 36; Admin Dose 1 MG; Start 06/11/17 at 15:00 Morphine Sulfate (morphine) 2 mg Q3 PRN IV SEVERE PAIN LEVEL 7-10 Last administered on 06/12/17 21:15; Admin Dose 2 MG; Start 06/11/17 at 21:00 Lisinopril (Zestril) 40 mg DAILY PO Last administered on 06/12/17 08:08; Admin Dose 40 MG; Start 06/12/17 at 09:00 Clonidine (Catapres) 0.1 mg Q4H PRN PO ELEVATED BLOOD PRESSURE Last administered on 06/13/17 00:01; Admin Dose 0.1 MG; Start 06/12/17 at 08:00 Nifedipine (Procardia Xl) 30 mg BID PO Last administered on 06/12/17 21:07; Admin Dose 30 MG; Start 06/12/17 at 21:00 LAUREN REILLY MD Jun 13, 2017 08:21
[2017-06-13] MEDS: HEPARIN 5,000 UNIT/0.5 ML VIAL SC SCH ×2 (08:41→20:54)
[2017-06-13] MEDS: INSULIN ASPART [NOVOLOG] 3 ML PEN SC SCH ×3 (08:42→18:05)
[2017-06-13] MEDS: LISINOPRIL 20 MG TAB PO SCH (08:43)
[2017-06-13] MEDS: METOPROLOL (XL) 50 MG TAB PO SCH (08:45)
[2017-06-13] MEDS: NIFEdipine (XL) 30 MG TAB PO SCH ×2 (08:50→20:47)
[2017-06-13] MEDS: LORAZEPAM 1 MG TAB PO PRN (20:47)
[2017-06-13] MEDS: HYDROCODONE/APAP (5/325) TAB PO PRN (20:48)
[2017-06-14] VITALS (11 sets, daily range): BP systolic 107–167; BP diastolic 48–81; PULSE 53–67; RESP 18–20
[2017-06-14] MEDS: ACCU-CHEK XX SCH ×4 (02:00→20:05)
--- NOTE | 2017-06-14 08:07 | CONS ---
Date/Time of Note Date/Time of Note DATE: 06/14/17 TIME: 08:05 Assessment/Plan Assessment/Plan Problems: (1) Epigastric abdominal pain Status: Acute Comment: resolved... says is eating... JOVANY (-)... labs fine (2) HTN (hypertension) Comment: controlled now (3) Type 2 diabetes mellitus Comment: good control (4) CKD stage 2 due to type 2 diabetes mellitus Comment: stable... good UOP.. await UA (5) Cholelithiasis Comment: stable... asx... nl LFTs (6) Agitation Comment: less now Consultation Date/Type/Reason Admit Date/Time Jun 12, 2017 at 11:21 Type of Consultation: neph 24 HR Interval Summary Free Text/Dictation feels well.. no abd pain today... need to mobilize better Exam/Review of Systems Vital Signs Vitals Vital Signs Date Time Temp Pulse Resp B/P Pulse Ox O2 Delivery O2 Flow Rate FiO2 06/14/17 07:49 98.2 56 20 130/58 96 06/11/17 14:04 Room Air Intake and Output 06/13/17 06/13/17 06/14/17 15:00 23:00 07:00 Intake Total 1200 ml 800 ml Output Total 300 ml 400 ml Balance 900 ml 400 ml Exam Constitutional: alert Psych: no complaints Neck: supple Respiratory: clear to auscultation Cardiovascular: regular rate and rhythm Gastrointestinal: nl liver, spleen, non-tender, soft Extremities: normal pulses Results Result Diagram: 06/13/17 0832 06/14/17 0542 Results 24 hrs Laboratory Tests Test 06/13/17 08:32 06/13/17 08:49 06/13/17 11:20 06/13/17 14:31 White Blood Count 6.2 Red Blood Count 4.50 L Hemoglobin 13.1 L Hematocrit 40.7 L Mean Corpuscular Volume 90.4 Mean Corpuscular Hemoglobin 29.1 Mean Corpuscular Hemoglobin Concent 32.2 Red Cell Distribution Width 12.5 Platelet Count 198 Mean Platelet Volume 11.0 H Neutrophils % 64.6 Lymphocytes % 22.0 Monocytes % 9.6 Eosinophils % 2.9 Basophils % 0.7 Nucleated Red Blood Cells % 0.0 Neutrophils # 4.0 Lymphocytes # 1.4 Monocytes # 0.6 Eosinophils # 0.2 Basophils # 0.0 Nucleated Red Blood Cells # 0.0 Erythrocyte Sedimentation Rate 12 Sodium Level 145 H Potassium Level 4.6 Chloride Level 105 Carbon Dioxide Level 29 Anion Gap 16 Blood Urea Nitrogen 22 H Creatinine 1.34 H Glucose Level 102 Lactic Acid Level 1.0 Calcium Level 9.3 Total Bilirubin 0.5 Direct Bilirubin 0.00 Indirect Bilirubin 0.5 Aspartate Amino Transf (AST/SGOT) 30 Alanine Aminotransferase (ALT/SGPT) 29 Alkaline Phosphatase 48 Total Protein 7.2 Albumin 4.1 Globulin 3.10 Albumin/Globulin Ratio 1.32 Amylase Level 73 Lipase 52 Bedside Glucose 91 85 128 Test 06/13/17 20:30 06/14/17 05:42 Bedside Glucose 218 Sodium Level 141 Potassium Level 3.4 L Chloride Level 104 Carbon Dioxide Level 28 Anion Gap 12 Blood Urea Nitrogen 27 H Creatinine 1.33 H Glucose Level 188 Calcium Level 8.9 Medications Medications Current Medications Ondansetron HCl (Zofran Inj) 4 mg Q6H PRN IV NAUSEA AND/OR VOMITING; Start at 15:00 Acetaminophen (Tylenol Tab) 650 mg Q6H PRN PO PAIN LEVEL 1-3 OR FEVER Last administered on 06/11/17 14:00; Admin Dose 650 MG; Start 06/10/17 at 15:00 Acetaminophen/ Hydrocodone Bitart ([place] (5/325)) 1 tab Q6H PRN PO MODERATE PAIN LEVEL 4-6 Last administered on 06/13/17 20:48; Admin Dose 1 TAB; Start 06/10/17 at 15:00 Acetaminophen/ Hydrocodone Bitart ([place] (5/325)) 2 tab Q6H PRN PO SEVERE PAIN LEVEL 7-10 Last administered on 06/12/17 06:20; Admin Dose 2 TAB; Start 06/10 at 15:00 Docusate Sodium (Colace) 100 mg Q12H PRN PO CONSTIPATION Last administered on 06/13/17 12:52; Admin Dose 100 MG; Start 06/10/17 at 15:00 Magnesium Hydroxide (Milk Of Mag) 30 ml DAILY PRN PO CONSTIPATION; Start 06/10 at 15:00 Heparin Sodium (Porcine) (Heparin (5000 Units/0.5 ml)) 5,000 unit Q12 SC Last administered on 06/13/17 20:54; Admin Dose 5,000 UNIT; Start 06/10/17 at 21: 00 Metoprolol Succinate (Toprol Xl) 50 mg DAILY PO Last administered on 08:45; Admin Dose 50 MG; Start 06/11/17 at 09:00 Diagnostic Test (Pha) (Accu-Chek) 1 ea 02 XX ; Start 06/11/17 at 02:00 Trazodone HCl (Desyrel) 50 mg QHS PRN PO for insomnia; Start 06/10/17 at 15:00 Miscellaneous Information 1 ea NOTE XX ; Start 06/10/17 at 15:30 Glucose (Glutose) 15 gm Q15M PRN PO DECREASED GLUCOSE; Start 06/10/17 at 15:30 Glucose (Glutose) 22.5 gm Q15M PRN PO DECREASED GLUCOSE; Start 06/10/17 at 15: 30 Dextrose (D50w Syringe) 25 ml Q15M PRN IV DECREASED GLUCOSE; Start 06/10/17 at 15:30 Dextrose (D50w Syringe) 50 ml Q15M PRN IV DECREASED GLUCOSE; Start 06/10/17 at 15:30 Glucagon (Glucagen) 1 mg Q15M PRN IM DECREASED GLUCOSE; Start 06/10/17 at 15: 30 Glucose (Glutose) 15 gm Q15M PRN BUCCAL DECREASED GLUCOSE; Start 06/10/17 at 15:30 Lorazepam (Ativan) 1 mg Q8H PRN PO ANXIETY Last administered on 06/13/17 20: 47; Admin Dose 1 MG; Start 06/11/17 at 15:00 Morphine Sulfate (morphine) 2 mg Q3 PRN IV SEVERE PAIN LEVEL 7-10 Last administered on 06/12/17 21:15; Admin Dose 2 MG; Start 06/11/17 at 21:00 Lisinopril (Zestril) 40 mg DAILY PO Last administered on 06/13/17 08:43; Admin Dose 40 MG; Start 06/12/17 at 09:00 Clonidine (Catapres) 0.1 mg Q4H PRN PO ELEVATED BLOOD PRESSURE Last administered on 06/13/17 00:01; Admin Dose 0.1 MG; Start 06/12/17 at 08:00 Nifedipine (Procardia Xl) 30 mg BID PO Last administered on 06/13/17 20:47; Admin Dose 30 MG; Start 06/12/17 at 21:00 YESSENIA MANNING MD Jun 14, 2017 08:07
[2017-06-14] MEDS: METOPROLOL (XL) 50 MG TAB PO SCH (08:17)
[2017-06-14] MEDS: NIFEdipine (XL) 30 MG TAB PO SCH ×2 (08:18→20:12)
[2017-06-14] MEDS: LISINOPRIL 20 MG TAB PO SCH (08:18)
[2017-06-14] MEDS: HEPARIN 5,000 UNIT/0.5 ML VIAL SC SCH ×2 (08:22→20:13)
[2017-06-14] MEDS: INSULIN ASPART [NOVOLOG] 3 ML PEN SC SCH ×3 (08:32→18:50)
[2017-06-14] MEDS: POTASSIUM CHLORIDE (SR) 20 MEQ TAB PO SCH ×2 (08:40→20:11)
[2017-06-14] MEDS: HYDROCODONE/APAP (5/325) TAB PO PRN ×2 (08:50→18:46)
[2017-06-14] MEDS: morphine 2 MG INJ IV PRN (12:13)
[2017-06-14] MEDS: LORAZEPAM 1 MG TAB PO PRN (21:09)
[2017-06-15] VITALS (10 sets, daily range): BP systolic 117–140; BP diastolic 53–65; PULSE 47–59; RESP 18–20
[2017-06-15] MEDS: ACCU-CHEK XX SCH ×3 (02:00→14:55)
--- NOTE | 2017-06-15 08:04 | PN ---
Date/Time of Note Date/Time of Note DATE: 06/15/17 TIME: 08:02 Assessment/Plan VTE Prophylaxis VTE Prophylaxis Intervention: other Lines/Catheters IV Catheter Type (from Nrsg): Saline Lock Urinary Cath still in place: No Assessment/Plan Assessment/Plan 1. Generalized pain is better today, sed rate was nl 2. HBP, with the addition of Adalat bid his BP remains well controlled 3. DM. sugar control is acceptable. 4. Renal insuff is stable 5. Can be dc with [facility] Subjective 24 Hr Interval Summary Respiratory: No shortness of breath Cardiovascular: No chest pain Gastrointestinal: no complaints Genitourinary: no complaints (in place), other Musculoskeletal: no complaints Exam/Review of Systems Vital Signs Vitals Vital Signs Date Time Temp Pulse Resp B/P Pulse Ox O2 Delivery O2 Flow Rate FiO2 06/15/17 07:34 97.9 56 20 131/65 98 06/14/17 20:00 Nasal Cannula 2.0 Intake and Output 06/14/17 06/14/17 06/15/17 15:00 23:00 07:00 Intake Total 960 ml Output Total 475 ml Balance 485 ml Exam Neck: No jvd Respiratory: clear to auscultation Cardiovascular: regular rate and rhythm Extremities: No edema (and no calf tend) Neurological: No focal weakness Results Result Diagram: 06/13/17 0832 06/14/17 0542 Results 24 hrs Laboratory Tests Test 06/14/17 12:19 06/14/17 12:48 06/14/17 15:00 06/14/17 20:11 Bedside Glucose 167 124 148 Urine Color YELLOW Urine Clarity SLIGHTLY CLOUDY A Urine pH 5.0 Urine Specific [place] 1.025 Urine Ketones TRACE A Urine Nitrite NEGATIVE Urine Bilirubin NEGATIVE Urine Urobilinogen 2+ H Urine Leukocyte Esterase 2+ H Urine Microscopic RBC 127 H Urine Microscopic WBC 34 H Urine Calcium Oxalate Crystals FEW A Urine Mucus MANY A Urine Hemoglobin 2+ H Urine Random Sodium 54 Urine Glucose 1+ H Urine Total Protein 2+ H Medications Medications Current Medications Ondansetron HCl (Zofran Inj) 4 mg Q6H PRN IV NAUSEA AND/OR VOMITING; Start at 15:00 Acetaminophen (Tylenol Tab) 650 mg Q6H PRN PO PAIN LEVEL 1-3 OR FEVER Last administered on 06/11/17t 14:00; Admin Dose 650 MG; Start 06/10/17 at 15:00 Acetaminophen/ Hydrocodone Bitart ([place] (5/325)) 1 tab Q6H PRN PO MODERATE PAIN LEVEL 4-6 Last administered on 06/14/17 08:50; Admin Dose 1 TAB; Start 06/10/17 at 15:00 Acetaminophen/ Hydrocodone Bitart ([place] (5/325)) 2 tab Q6H PRN PO SEVERE PAIN LEVEL 7-10 Last administered on 06/14/17 18:46; Admin Dose 2 TAB; Start 06/10 at 15:00 Docusate Sodium (Colace) 100 mg Q12H PRN PO CONSTIPATION Last administered on 06/13/17 12:52; Admin Dose 100 MG; Start 06/10/17 at 15:00 Magnesium Hydroxide (Milk Of Mag) 30 ml DAILY PRN PO CONSTIPATION Last administered on 06/14/17 19:44; Admin Dose 30 ML; Start 06/10/17 at 15:00 Heparin Sodium (Porcine) (Heparin (5000 Units/0.5 ml)) 5,000 unit Q12 SC Last administered on 06/14/17 20:13; Admin Dose 5,000 UNIT; Start 06/10/17 at 21: 00 Metoprolol Succinate (Toprol Xl) 50 mg DAILY PO Last administered on 08:17; Admin Dose 50 MG; Start 06/11/17 at 09:00 Diagnostic Test (Pha) (Accu-Chek) 1 ea 02 XX ; Start 06/11/17 at 02:00 Trazodone HCl (Desyrel) 50 mg QHS PRN PO for insomnia Last administered on 20:12; Admin Dose 50 MG; Start 06/10/17 at 15:00 Miscellaneous Information 1 ea NOTE XX ; Start 06/10/17 at 15:30 Glucose (Glutose) 15 gm Q15M PRN PO DECREASED GLUCOSE; Start 06/10/17 at 15:30 Glucose (Glutose) 22.5 gm Q15M PRN PO DECREASED GLUCOSE; Start 06/10/17 at 15: 30 Dextrose (D50w Syringe) 25 ml Q15M PRN IV DECREASED GLUCOSE; Start 06/10/17 at 15:30 Dextrose (D50w Syringe) 50 ml Q15M PRN IV DECREASED GLUCOSE; Start 06/10/17 at 15:30 Glucagon (Glucagen) 1 mg Q15M PRN IM DECREASED GLUCOSE; Start 06/10/17 at 15: 30 Glucose (Glutose) 15 gm Q15M PRN BUCCAL DECREASED GLUCOSE; Start 06/10/17 at 15:30 Lorazepam (Ativan) 1 mg Q8H PRN PO ANXIETY Last administered on 06/14/17 21: 09; Admin Dose 1 MG; Start 06/11/17 at 15:00 Morphine Sulfate (morphine) 2 mg Q3 PRN IV SEVERE PAIN LEVEL 7-10 Last administered on 06/14/17 12:13; Admin Dose 2 MG; Start 06/11/17 at 21:00 Lisinopril (Zestril) 40 mg DAILY PO Last administered on 06/14/17 08:18; Admin Dose 40 MG; Start 06/12/17 at 09:00 Clonidine (Catapres) 0.1 mg Q4H PRN PO ELEVATED BLOOD PRESSURE Last administered on 06/13/17 00:01; Admin Dose 0.1 MG; Start 06/12/17 at 08:00 Nifedipine (Procardia Xl) 30 mg BID PO Last administered on 06/14/17 20:12; Admin Dose 30 MG; Start 06/12/17 at 21:00 LAUREN REILLY MD Jun 15, 2017 08:04
[2017-06-15] MEDS ORDERED: NIFE30TA2 PO (08:09)
[2017-06-15] MEDS ORDERED: METO-319 PO (08:09)
[2017-06-15] MEDS ORDERED: LORA1TAB PO (08:09)
[2017-06-15] MEDS ORDERED: LISI20TA11 PO (08:09)
[2017-06-15] MEDS: INSULIN ASPART [NOVOLOG] 3 ML PEN SC SCH ×3 (08:58→17:50)
[2017-06-15] MEDS: NIFEdipine (XL) 30 MG TAB PO SCH (08:59)
[2017-06-15] MEDS: METOPROLOL (XL) 50 MG TAB PO SCH (08:59)
[2017-06-15] MEDS: LISINOPRIL 20 MG TAB PO SCH (09:00)
[2017-06-15] MEDS: HEPARIN 5,000 UNIT/0.5 ML VIAL SC SCH (09:07)
[2017-06-15] MEDS: HYDROCODONE/APAP (5/325) TAB PO PRN (14:35)
[2017-06-15] MEDS: morphine 2 MG INJ IV PRN (15:28)
--- NOTE | 2017-06-19 09:42 | DS ---
DATE OF ADMISSION: 06/12/2017 DATE OF DISCHARGE: 06/15/2017 HISTORY OF PRESENT ILLNESS: This 76-year-old male admitted with chest and abdominal pain without na usea, vomiting, shortness of breath or cough. PERTINENT PHYSICAL EXAMINATION VITAL SIGNS: 185/100, pulse was 61, respirations are 18, O2 sat 99%. CARDIOPULMONARY: Exam was unrevealing. ABDOMEN: Normal. EXTREMITIES: There was no edema. LABORATORY AND DIAGNOSTIC STUDIES: Hematocrit remained stable at 37.4 on admit, 37.9 on discharge. White count was normal as was platelet count, sed rate was 12, sugars varied from 123 to 243. Prot micha and PTT were normal. Urine revealed 2+ esterase, 2+ urobilinogen, red cells were present, white cells were present. Unclear whether this was a catheterized specimen with imaging studies includin g ultrasound of the abdomen revealed cholelithiasis without cholecystitis, mild left hydro versus a parapelvic renal cysts and multiple subcentimeter nonobstructing renal calculi in the right kidney. CT of the abdomen and pelvis revealed cholelithiasis, atherosclerosis of the mesenteric and renal a rteries. The kidneys were unremarkable. HOSPITAL COURSE: Included undergoing the above-mentioned diagnostic studies. It was unclear as to why he was having generalized abdominal pain, albeit at the time of discharge, he was much improved, although remained a bit lethargic. DISCHARGE DIAGNOSES: 1. Abdominal pain, cause unclear. 2. Diabetes, on oral agents. 3. Hypertension, to continue oral agents. PLAN: He will be discharged on the medications below and will be followed up by Dr. Mock and [facility]. DIET: Diabetic. ACTIVITY: As tolerated. MEDICATIONS ON DISCHARGE: 1. Lisinopril 20 mg per day. 2. Lorazepam 1 mg at bedtime. 3. Metoprolol 50 mg per day. 4. Nifedipine 30 mg b.i.d. 5. Xanax 0.25 p.r.n. 6. Glipizide 5 mg per day. 7. Metformin 500 mg b.i.d. with meals. 8. Trazodone 100 mg at bedtime. Dictated By: LAUREN BAILEY/ROMMEL Conf#: [id number] DID#: [id number]
== END 2017-06-15 19:40 | disposition home or self-care (01) | DRG 392 ==
LOC: E/R 09:36 → MS4 14:34 → OBSVTOIN 06-12 11:21
PROVIDERS: ADMIT Internal Medicine; ATTEND Internal Medicine
DX: R10.84 Generalized abdominal pain (principal); E11.22 Type 2 diabetes mellitus with diabetic chronic kidney disease; F84.0 Autistic disorder; I10 Essential (primary) hypertension; R07.9 Chest pain, unspecified; K80.20 Calculus of gallbladder without cholecystitis without obstruction; E87.6 Hypokalemia; F41.9 Anxiety disorder, unspecified; I12.9 Hypertensive chronic kidney disease with stage 1 through stage 4 chronic kidney disease, or unspecified chronic kidney disease; N18.2 Chronic kidney disease, stage 2 (mild); Z86.73 Personal history of transient ischemic attack (TIA), and cerebral infarction without residual deficits; R27.0 Ataxia, unspecified
CPT/HCPCS: 36415; 71010; 74176; 76700; 80048; 80053; 81001; 82150; 82962; 83605; 83690; 83735; 84300; 84484; 85025; 85610; 85651; 90686; 93005; 96372; 96374; 96375; 96376; 97110; 97162; 97530; G0378; J0360; J1644; J1815; J2060; J2270; J2405; J3010; J7040

== ENCOUNTER 2017-07-03 17:46 | Inpatient (IN) | payer MEDICARE, MEDICAID ==
[~2017-07-03] VITALS: Ht 170.2 cm; Wt 80.0 kg
[2017-07-03] MEDS: DEXTROSE 5%-0.9% NACL 1,000 ML IV SCH (05:31)
[~2017-07-03 17:46] MED LIST changes: +ALPR0.254 PO; +LISI20TA11 PO; +LORA1TAB PO; +METO-319 PO; +METO-336 PO; +NIFE30TA2 PO; +TRAZ50TA18 PO
[2017-07-03] MEDS ORDERED: SOD CHLORIDE 0.9% 1,000 ML IV STA (18:34)
[2017-07-03] MEDS ORDERED: morphine 2 MG INJ IV STA (18:34)
[2017-07-03 19:15] LABS: BASOPHIL # 0.1 10^3/ul (0.0-0.1); BASOPHILS % 0.7 % (0.0-2.0); EOSINOPHILS # 0.1 10^3/ul (0.0-0.5); EOSINOPHILS % 1.4 % (0.0-7.0); HEMATOCRIT 35.9 % (42.0-52.0); HEMOGLOBIN 12.1 g/dl (14.0-18.0); LYMPHOCYTES # 1.2 10^3/ul (0.8-2.9); LYMPHOCYTES % 17.4 % (15.0-51.0); MEAN CORPUSCULAR HEMOGLOBIN 29.7 pg (29.0-33.0); MEAN CORPUSCULAR HGB CONC 33.7 g/dl (32.0-37.0); MEAN PLATELET VOLUME 10.9 fl (7.4-10.4); MONOCYTE # 0.5 10^3/ul (0.3-0.9); MONOCYTES % 7.6 % (0.0-11.0); NEUTROPHIL # 5.1 10^3/ul (1.6-7.5); NEUTROPHILS % 72.8 % (39.0-77.0); PLATELET COUNT 234 10^3/UL (140-415); RED BLOOD COUNT 4.08 10^6/ul (4.70-6.10); RED CELL DISTRIBUTION WIDTH 12.3 % (11.5-14.5)
[2017-07-03 19:33] LABS: INR 1.04; PROTIME 13.6 Sec (12.2-14.2); PT RATIO 1.1
[2017-07-03 19:34] LABS: PARTIAL THROMBOPLASTIN TIME 28.3 Sec (25.0-35.0)
[2017-07-03 19:46] LABS: ALBUMIN 3.7 g/dl (3.3-4.9); ALBUMIN/GLOBULIN RATIO 1.27; BILIRUBIN,INDIRECT 0.2 mg/dl (0-1.1); BILIRUBIN,TOTAL 0.2 mg/dl (0.2-1.3); CALCIUM 8.8 mg/dl (8.4-10.2); CREATININE 1.14 mg/dl (0.61-1.24); POTASSIUM 3.6 mmol/L (3.5-5.1); TOTAL PROTEIN 6.6 g/dl (6.1-8.1)
[2017-07-03 19:57] LABS: TROPONIN-I 0.025 ng/ml (0.00-0.12)
--- NOTE | 2017-07-03 20:37 | RADRPT ---
PROCEDURE: XR Chest. CLINICAL INDICATION: Abdominal Pain TECHNIQUE: Single frontal view of the chest was obtained COMPARISON: Chest radiograph dated April 02, 2015. FINDINGS: The heart and mediastinum are within normal limits. The lungs are clear. There is no pleural effusion or pneumothorax. Degenerative changes of the spine and shoulder joints are present. IMPRESSION: 1. No acute cardiopulmonary disease. RPTAT:AAJJ Bam Sanabria Physician Date Time Electronically viewed and signed by Bam Sanabria Physician on 07/03/2017 20:37 QL/
--- NOTE | 2017-07-03 20:55 | RADRPT ---
PROCEDURE: CT abdomen and pelvis without contrast. CLINICAL INDICATION: Abdominal pain. Tarry stool. TECHNIQUE: CT scan of the abdomen and pelvis without contrast was performed and is reconstructed a t the 2.5 mm contiguous axial intervals from the dome of the diaphragm to the inferior pubic rami.. The patient was scanned without intravenous contrast. Sagittal and coronal reformatted images were obtained from the axial source images. The calculated radiation dose measures 508 mGy centimeters. The CTDI measures 9 mGy. Individualized dose optimization technique was used for the performance of this exam. This included 1. Automated exposure control. 2. Adjustment of the mA and / or kV according to the patient's size. 3. Use of iterative reconstructed technique. COMPARISON: CT abdomen pelvis June 10, 2017 FINDINGS: The lung bases are clear of any infiltrate. Again noted is a 3 mm benign appearing noncalcified pleu ral-based micro nodule on the lateral aspect of the right lower lobe. There are coronary artery calc ifications present.. No effusion is seen. The liver is of normal size, contour and attenuation with no mass or ductal dilatation. There are ga llstones. No splenic, adrenal or pancreatic abnormalities present. Kidneys are of normal size and contour. No calculus or masses seen. There is mild bilateral hydro ureter nephrosis to the level of the bladder. No ureteral stone is seen. The urinary bladder is dist ended. No bladder mass or stone is seen. The patient is post prostatectomy. No residual or recurrent mass is seen in the pelvis. There is no aneurysm. There are extensive vascular calcifications compatible with diabetic vasculo la nena. No adenopathy is present. Pelvic da dissection has been performed. No bowel mass or obstruction is present. There is fecal impaction. The appendix is not confidently visualized, however, no inflamed appendix is noted.. No phlegmon, ascites or pneumoperitoneum is v isualized. Senescent degenerative changes are seen in the spine. No lytic or blastic lesions are visualized. IMPRESSION: No evidence of urolithiasis, diverticulitis or appendicitis. Mild bilateral hydroureter nephrosis. U rinary bladder distension. Consider renal ultrasound following voiding or bladder catheterization. Status post radical prostatectomy. No evidence of residual, recurrent or metastatic disease. Vascular calcifications. Question diabetic vasculopathy. Cholelithiasis. 3 mm benign appearing pleural-based micro nodule right lower lobe. Senescent degenerative changes spine. .Bhaskar Shine MD, MD Date Time Electronically viewed and signed by .Bhaskar Shine MD, MD on 07/03/2017 20:55 .A/
[2017-07-03] MEDS ORDERED: LORA1TAB PO (21:19)
[2017-07-03] MEDS ORDERED: ACETAMINOPHEN 325 MG TAB PO PRN (22:00)
[2017-07-03] MEDS ORDERED: ONDANSETRON 4 MG INJ IV PRN ×2 (22:00)
[2017-07-03] MEDS ORDERED: NACL 0.9% 3 ML SYG IV SCH (22:00)
[2017-07-03] MEDS ORDERED: DEXTROSE 50% 50 ML SYRINGE IV PRN ×2 (22:30)
[2017-07-03] MEDS ORDERED: Discontinue current oral sulfonylureas (glyburide, glipizide, and/or glimepiride) prior to XX ONE (22:30)
[2017-07-03] MEDS ORDERED: GLUCOSE GEL 15 GRAM TUBE BUCCAL PRN (22:30)
[2017-07-03] MEDS ORDERED: GLUCOSE GEL 15 GRAM TUBE PO PRN ×2 (22:30)
[2017-07-03] MEDS ORDERED: HYPOGLYCEMIA PROTOCOL when Glucose is <70 mg/dL or symptomatic <90 mg/dL. XX ONE (22:30)
[2017-07-03] MEDS ORDERED: GLUCAGON 1 MG INJ IM PRN (22:30)
[2017-07-03 23:13] VITALS: TEMP 98.2
[2017-07-03 23:20] LABS: IRON 55 ug/dl (35-150)
--- NOTE | 2017-07-03 23:28 | ERD ---
ER Documentation Chief Complaint Chief Complaint BIB RA FOR EVAL OF LOWER ABD PAIN X 1 WEEK DARK TARRY STOOL PER CAREGIVER HPI 76 year old male with a history of autism and stroke BIB caregiver for lower abdominal pain and rectal bleeding for one day. He was in the hospital about 3 weeks ago for similar complaints and was admitted, but she states "they didn't tell me anything and sent him home". History from the patient is limited secondary to his mental delay and difficulty communicating. Caregiver reports no vomiting, melena, hematemesis, fever, chills. ROS All systems reviewed and are negative except as per history of present illness. Medications Home Meds Active Scripts Lorazepam* (Lorazepam*) 1 Mg Tablet, 1 MG PO QPM Y for ANXIETY for 30 Days, #30 TAB Prov:LAUREN CASTELAN MD 06/15/17 Lisinopril* (Lisinopril*) 20 Mg Tablet, 40 MG PO DAILY for 30 Days, TAB Prov:LAUREN CASTELAN MD 06/15/17 Metoprolol Succinate* (Toprol XL*) 50 Mg Tab.er.24h, 50 MG PO DAILY for 30 Days Prov:LAUREN CASTELAN MD 06/15/17 Nifedipine (Procardia Xl) 30 Mg Tab.er.24, 30 MG PO BID for 30 Days, TAB Prov:LAUREN CASTELAN MD 06/15/17 Reported Medications Lorazepam* (Lorazepam*) 1 Mg Tablet, 1 MG PO HS Y for ANXIETY, #30 TAB 07/03/17 Trazodone Hcl* (Trazodone Hcl*) 50 Mg Tablet, 100 MG PO QHS, #30 TAB 06/10/17 Alprazolam* (Alprazolam*) 0.25 Mg Tablet, 0.25 MG PO BID Y for ANXIETY, TAB 06/10/17 Lisinopril* (Lisinopril*) 20 Mg Tablet, 20 MG PO DAILY, #30 TAB 06/10/17 Metoprolol Succinate* (Toprol XL*) 100 Mg Tab.sr.24h, 100 MG PO DAILY, #30 TAB 06/10/17 Glipizide* (Glipizide*) 5 Mg Tablet, 5 MG PO AC BREAKFAST, TAB 04/02/15 Metformin Hcl* (Metformin Hcl*) 500 Mg Tablet, 500 MG PO BID WITH MEALS, TAB 04/02/15 Allergies Allergies: Coded Allergies: No Known Allergy (Unverified , 06/10/17) PMhx/Soc Hx Neurological Disorder: Yes (CVA) Hx Respiratory Disorders: No Hx Cardiac Disorders: Yes (HTN, CVA) Hx Psychiatric Problems: No Hx Miscellaneous Medical Probl: Yes (Autism) Hx Alcohol Use: No Hx Substance Use: No Hx Tobacco Use: No Smoking Status: Never smoker FmHx Family History: other (unable to obtain) Physical Exam Vitals Vital Signs Date Time Temp Pulse Resp B/P Pulse Ox O2 Delivery O2 Flow Rate FiO2 07/03/17 23:13 98.2 54 20 127/59 98 Room Air 07/03/17 18:09 97.9 59 18 135/70 100 Physical Exam Const: no apparent distress, gets frustrating while trying to answer questions. Head: Atraumatic Eyes: Normal Conjunctiva ENT: Normal External Ears, Nose and Mouth. Neck: supple Resp: Clear to auscultation bilaterally Cardio: Regular rate and rhythm, no murmurs Abd: Soft, patient states "it hurts" in all quadrants, but no grimacing, rebound or guarding. , non distended. Normal bowel sounds Rectal: +marroon stool in diaper.+Guaiac, no bright red blood Skin: No petechiae or rashes Back: No midline or flank tenderness Ext: No cyanosis, or edema Neur: Awake and alert, moving all extremities Psych: Appears intermittently agitated, otherwise calm and cooperative Result Diagram: 07/03/17 1900 07/03/17 190 Results 24 hrs Laboratory Tests Test 07/03/17 19:00 White Blood Count 7.010^3/ul Red Blood Count 4.0810^6/ul Hemoglobin 12.1g/dl Hematocrit 35.9% Mean Corpuscular Volume 88.0fl Mean Corpuscular Hemoglobin 29.7pg Mean Corpuscular Hemoglobin Concent 33.7g/dl Red Cell Distribution Width 12.3% Platelet Count 86364^3/UL Mean Platelet Volume 10.9fl Neutrophils % 72.8% Lymphocytes % 17.4% Monocytes % 7.6% Eosinophils % 1.4% Basophils % 0.7% Nucleated Red Blood Cells % 0.0/100WBC Neutrophils # 5.110^3/ul Lymphocytes # 1.210^3/ul Monocytes # 0.510^3/ul Eosinophils # 0.110^3/ul Basophils # 0.110^3/ul Nucleated Red Blood Cells # 0.010^3/ul Prothrombin Time 13.6Sec Prothrombin Time Ratio 1.1 INR International Normalized Ratio 1.04 Activated Partial Thromboplast Time 28.3Sec Sodium Level 143mmol/L Potassium Level 3.6mmol/L Chloride Level 104mmol/L Carbon Dioxide Level 28mmol/L Anion Gap 15 Blood Urea Nitrogen 27mg/dl Creatinine 1.14mg/dl Glucose Level 122mg/dl Calcium Level 8.8mg/dl Iron Level 55ug/dl Total Iron Binding Capacity 286ug/dl Percent Iron Saturation 19% SAT Ferritin 77.4ng/ml Total Bilirubin 0.2mg/dl Direct Bilirubin 0.00mg/dl Indirect Bilirubin 0.2mg/dl Aspartate Amino Transf (AST/SGOT) 22IU/L Alanine Aminotransferase (ALT/SGPT) 20IU/L Alkaline Phosphatase 56IU/L Troponin I 0.025ng/ml Total Protein 6.6g/dl Albumin 3.7g/dl Globulin 2.90g/dl Albumin/Globulin Ratio 1.27 Lipase 159U/L Current Medications Medications (Trade) Dose Ordered Sig/Lucy Route PRN Reason Start Time Stop Time Status Last Admin Dose Admin Sodium Chloride (NS) 1,000 ml @ 1,000 mls/hr Q1H STAT IV 07/03/17 18:34 07/03/17 19:33 DC 07/03/17 19:20 Morphine Sulfate (morphine) 2 mg ONCE STAT IV 07/03/17 18:34 07/03/17 18:36 DC 07/03/17 19:20 Ondansetron HCl (Zofran Inj) 4 mg ER BRIDGE PRN IV NAUSEA AND/OR VOMITING 07/03/17 22:00 07/03/17 23:02 DC Acetaminophen (Tylenol Tab) 650 mg ER BRIDGE PRN PO MILD PAIN/FEVER 07/03/17 22:00 07/03/17 23:02 DC Alprazolam (Xanax) 0.25 mg BID PRN PO ANXIETY 07/03/17 22:00 07/04/17 00:11 Lisinopril (Zestril) 20 mg DAILY PO 07/04/17 09:00 Metoprolol Succinate (Toprol Xl) 50 mg BID PO 07/03/17 22:00 Nifedipine (Procardia Xl) 30 mg BID PO 07/04/17 09:00 Trazodone HCl (Desyrel) 100 mg QHS PO 07/04/17 21:00 IV Flush (NS 3 ml) 3 ml PER PROTOCOL IV 07/03/17 22:00 Ondansetron HCl (Zofran Inj) 4 mg Q6H PRN IV NAUSEA AND/OR VOMITING 07/03/17 22:00 Pantoprazole 40 mg 40 mg DAILY@06 IV 07/04/17 06:00 Dextrose/Sodium Chloride (D5-NS) 1,000 ml @ 80 mls/hr [id number] IV 07/03/17 22:00 Miscellaneous Information (* Miscellaneous Pharmacy Order) Discontinue current oral sulfonylur... ONCE ONCE XX 07/03/17 22:30 07/03/17 22:31 DC Diagnostic Test (Pha) (Accu-Chek) 1 ea 02 XX 07/04/17 02:00 Miscellaneous Information (* Miscellaneous Pharmacy Order) HYPOGLYCEMIA PROTOCOL w... ONCE ONCE XX 07/03/17 22:30 07/03/17 22:31 DC Insulin Aspart (Novolog Insulin Pen) NOVOLOG *MILD* ALGORITHM WITH MEALS BEDTIME SC 07/04/17 08:00 Miscellaneous Information (* Miscellaneous Pharmacy Order) Discontinue all previ... ONCE ONCE XX 07/03/17 22:30 07/03/17 22:31 DC Miscellaneous Information 1 ea NOTE XX 07/03/17 22:30 Glucose (Glutose) 15 gm Q15M PRN PO DECREASED GLUCOSE 07/03/17 22:30 Glucose (Glutose) 22.5 gm Q15M PRN PO DECREASED GLUCOSE 07/03/17 22:30 Dextrose (D50w Syringe) 25 ml Q15M PRN IV DECREASED GLUCOSE 07/03/17 22:30 Dextrose (D50w Syringe) 50 ml Q15M PRN IV DECREASED GLUCOSE 07/03/17 22:30 Glucagon (Glucagen) 1 mg Q15M PRN IM DECREASED GLUCOSE 07/03/17 22:30 Glucose (Glutose) 15 gm Q15M PRN BUCCAL DECREASED GLUCOSE 07/03/17 22:30 Procedures/MDM EKG: Sinus bradycardia at [address] bpm [address] no acute ST/T changes consistent with ischemia, no STEMI Imaging: Chest Xray; no acute abnormalities CT Abd/Pelvis: IMPRESSION: No evidence of urolithiasis, diverticulitis or appendicitis. Mild bilateral hydroureter nephrosis. Urinary bladder distension. Consider renal ultrasound following voiding or bladder catheterization. Status post radical prostatectomy. No evidence of residual, recurrent or metastatic disease. Vascular calcifications. Question diabetic vasculopathy. Cholelithiasis. 3 mm benign appearing pleural-based micro nodule right lower lobe. Senescent degenerative changes spine. .Bhaskar Shine MD, MD Date Time Electronically viewed and signed by .Bhaskar Shine MD, MD on 07/03/2017 20: 55 Labs Reviewed and interpreted by me: CBC: mild anemia CMP: elevated BUN, otherwise normal Coags wnl MDM Patient is returning with recurrent lower abdominal pain and rectal bleeding. I have a lower suspicion for upper GI bleed and suspect lower GI bleed. Vitals were stable upon arrival. No evidence of hemorrhage. No evidence of significant anemia. On last hospital stay, I saw no records of an endoscopy or colonoscopy being done. I think the patient would benefit from these studies. I will admit him to telemetry for close monitoring and further workup. Admitting MD: Dr. Castelan, range conservationist for pt's PCP Dr. Reese Departure Diagnosis: Primary Impression: Lower abdominal pain Additional Impression: GI bleed GI bleed type/associated pathology: unspecified gastrointestinal hemorrhage type Qualified Code: K92.2 - Gastrointestinal hemorrhage, unspecified gastrointestinal hemorrhage type Condition: Serious SANDRO CISNEROS MD Jul 03, 2017 23:28
[2017-07-03 23:29] LABS: TOTAL IRON BINDING CAPACITY 286 ug/dl (241-421)
[2017-07-04] VITALS (8 sets, daily range): BP systolic 121–157; BP diastolic 60–75; PULSE 48–66; RESP 17–20; Ht 170.2 cm; Wt 80.0 kg
[2017-07-04] MEDS: ALPRAZOLAM 0.25 MG TAB PO PRN (00:11)
[2017-07-04] MEDS ORDERED: morphine 2 MG INJ IV ONE (01:00)
[2017-07-04] MEDS: METOPROLOL (XL) 50 MG TAB PO SCH ×3 (02:00→21:00)
[2017-07-04] MEDS ORDERED: ACCU-CHEK XX SCH (02:00)
[2017-07-04 06:23] LABS: BASOPHILS % 0.5 % (0.0-2.0); EOSINOPHILS # 0.1 10^3/ul (0.0-0.5); EOSINOPHILS % 1.5 % (0.0-7.0); HEMATOCRIT 33.8 % (42.0-52.0); HEMOGLOBIN 11.4 g/dl (14.0-18.0); LYMPHOCYTES # 1.5 10^3/ul (0.8-2.9); LYMPHOCYTES % 22.4 % (15.0-51.0); MEAN CORPUSCULAR HEMOGLOBIN 29.8 pg (29.0-33.0); MEAN CORPUSCULAR HGB CONC 33.7 g/dl (32.0-37.0); MEAN CORPUSCULAR VOLUME 88.5 fl (82.0-101.0); MONOCYTE # 0.5 10^3/ul (0.3-0.9); MONOCYTES % 8.3 % (0.0-11.0); NEUTROPHIL # 4.3 10^3/ul (1.6-7.5); NEUTROPHILS % 67.1 % (39.0-77.0); PLATELET COUNT 208 10^3/UL (140-415); RED BLOOD COUNT 3.82 10^6/ul (4.70-6.10); RED CELL DISTRIBUTION WIDTH 12.2 % (11.5-14.5); WHITE BLOOD COUNT 6.5 10^3/ul (4.8-10.8)
[2017-07-04] MEDS: PANTOPRAZOLE 40 MG INJ IV SCH (06:29)
[2017-07-04 06:56] LABS: CALCIUM 8.4 mg/dl (8.4-10.2); MAGNESIUM 1.6 mg/dl (1.7-2.5); PHOSPHORUS 3.6 mg/dl (2.5-4.9); POTASSIUM 3.4 mmol/L (3.5-5.1)
[2017-07-04] MEDS ORDERED: MAGNESIUM SULFATE 3 GM in DEXTROSE 5% 100 ML IVPB ONE (08:30)
[2017-07-04] MEDS ORDERED: ACETAMINOPHEN 325 MG TAB PO PRN (08:30)
[2017-07-04] MEDS ORDERED: PEG/ELECTROLYTES 4L BTL PO ONE (08:30)
[2017-07-04] MEDS ORDERED: POTASSIUM CHLORIDE 20 MEQ POWDER FOR ORAL SOLN PO SCH (09:00)
[2017-07-04] MEDS: INSULIN ASPART [NOVOLOG] 3 ML PEN SC SCH ×4 (09:00→21:00)
--- NOTE | 2017-07-04 09:06 | CONS ---
DATE OF ADMISSION: 07/03/2017 DATE OF CONSULTATION: TYPE OF CONSULTATION: Gastroenterology Dear Dr. Mock and Dr. Reilly: Thank you for asking me to see Mr. Saldaña in GI consultation. HISTORY OF PRESENT ILLNESS: The patient, as you know, is a 76-year-old white gentleman who was brou ght to the hospital because of history of passing blood from the rectum for 1 day. He passed blood several times, dark red in color. He also had nonspecific lower abdominal pain, but he has no histo ry of hematemesis. He had a similar history 3 weeks ago, but patient cannot recall any GI workup. He has no history of similar bleeding in the past. MEDICATIONS PRIOR TO ADMISSION: Include: 1. Lorazepam. 2. Lisinopril. 3. Toprol. 4. Procardia. 1. Lorazepam. 2. Trazodone. 3. Alprazolam. 4. Lisinopril. 5. Glipizide. 6. Metformin. REVIEW OF SYSTEM: Positive for diabetes and hypertension, and also past medical history includes a CVA. He has nonspecific heart disease. SOCIAL HISTORY: Patient does not smoke or drink. PAST SURGICAL HISTORY: No surgeries in the past. PHYSICAL EXAMINATION: GENERAL: The patient is a 76-year-old white gentleman who at this time is alert. He is well built, he is afebrile. VITAL SIGNS: Temperature 98.1, pulse is 51, blood pressure is 157/60. CARDIOVASCULAR: Normal heart sounds. RESPIRATORY: Normal breath sounds. ABDOMEN: Showed unremarkable findings. LABORATORY WORKUP: Hemoglobin is 11.4, hematocrit 33.8, WBC 6500, potassium 3.4, bilirubin 0.8, AST 22, ALT 20, alkaline phosphatase 56. The CT of the abdomen shows evidence of status post radical prostatectomy. He does have evidence of cholelithiasis, nodule in the right lower lobe noted. CLINICAL IMPRESSION: The patient presenting with history of rectal bleeding, rule out colorectal ne oplasm, although this could be suggestive of hemorrhoidal bleeding. I doubt if we are dealing with an AV malformation of the GI tract, but it is quite possible. History of diabetes, hypertension, prostate surgery, history of cerebrovascular accident. PLAN: At this time, recommend a colonoscopy. Once again, doctors, thank you for this consultation. Dictated By: LUIS CAST/ROMMEL Conf#: [id number] DID#: [id number] CC: YESSENIA MOCK MD; LAUREN REILLY MD;*[facility]*
--- NOTE | 2017-07-04 09:26 | HP ---
DATE OF ADMISSION: 07/03/2017 IDENTIFYING DATA: The patient is a 76-year-old male admitted to the hospital with constipation and rectal bleeding. HISTORICAL EVENTS: The patient states he has had difficulty moving his bowels. This has been probl ematic intermittently for many years, but yesterday when attempting to move his bowels, noted some d iscomfort in the rectum and bright red blood. He was transferred to [facility] from his extended care facility and bright red blood was noted on exam and hospitalization recommended. He denies nausea, vomiting, abdominal pain, cough, wheezing, shortness of breath, chest pain and states he has had a Silveira catheter in place for a long time. PAST MEDICAL HISTORY: 1. History of hypertension. 2. Mitral regurgitation. 3. Surgery for prostate cancer. 4. Prior vitrectomy 5. Mild impaired renal function with creatinine 1.5. 6. Prior CVA. MEDICATIONS: Include: 1. Glipizide 5 mg daily. 2. Metformin 500 mg b.i.d. 3. Lisinopril 20 mg per day. 4. Metoprolol 100 mg per day. 5. Trazodone 50 mg at bedtime. 6. Xanax p.r.n. FAMILY HISTORY: To be reviewed later. PHYSICAL EXAMINATION: VITAL SIGNS: BP 138/80, pulse 70, respirations are 20, he was afebrile. EYES: Extraocular muscles were full. NOSE, MOUTH, AND THROAT: Normal. NECK: Supple. There was no jugular venous distention, thyroid enlargement or adenopathy. LUNGS: Clear. HEART: Rhythm regular, no murmur. No third or fourth sound. ABDOMEN: Nontender. Liver and spleen were not palpable. No masses or tenderness were noted. EXTREMITIES: No edema. No calf tenderness. NEUROLOGIC: No lateralizing motor weakness. Rectal exam trace brown stool on the examining finger. There was no bright red blood noted. IMPRESSION: 1. Constipation and history and evidence of rectal bleeding. Demands gastrointestinal evaluation a nd likely imaging of the lower bowel. Gastroenterology has been requested. 2. History of hypertension. Continue blood pressure medications and monitor BP throughout. 3. Diabetes. PLAN: Will hold oral agents for now as he is only on clear liquids. We will provide q.6h. insulin coverage until, once again, he starts eating. Dictated By: LAUREN REILLY MD MR/NTS Conf#: [id number] DID#: [id number]
[2017-07-04] MEDS: LISINOPRIL 20 MG TAB PO SCH (09:31)
[2017-07-04] MEDS: NIFEdipine (XL) 30 MG TAB PO SCH ×2 (09:31→21:00)
[2017-07-04] MEDS: DEXTROSE 5%-0.9% NACL 1,000 ML IV SCH ×2 (09:33→21:06)
[2017-07-04 11:44] LABS: CALCIUM 8.6 mg/dl (8.4-10.2); CREATININE 0.97 mg/dl (0.61-1.24); POTASSIUM 3.5 mmol/L (3.5-5.1)
[2017-07-04] MEDS ORDERED: POTASSIUM CHLORIDE 20 MEQ POWDER FOR ORAL SOLN PO ONE (17:30)
[2017-07-04] MEDS: morphine 2 MG INJ IV PRN (18:26)
[2017-07-04] MEDS: traZODone 50 MG TAB PO SCH (21:01)
[2017-07-05] VITALS (18 sets, daily range): BP systolic 67–142; BP diastolic 41–78; PULSE 50–66; RESP 12–20
[2017-07-05] MEDS: morphine 2 MG INJ IV PRN ×2 (03:40→18:32)
[2017-07-05] MEDS ORDERED: INSULIN ASPART [NOVOLOG] 3 ML PEN SC SCH (04:00)
[2017-07-05] MEDS: Insulin NOVOLOG SS MILD Algorithm (NPO/TPN/ENTERAL FEEDS) SC SCH ×5 (04:48→20:52)
[2017-07-05] MEDS: PANTOPRAZOLE 40 MG INJ IV SCH (05:08)
[2017-07-05 06:20] LABS: BASOPHILS % 0.6 % (0.0-2.0); EOSINOPHILS # 0.1 10^3/ul (0.0-0.5); EOSINOPHILS % 1.7 % (0.0-7.0); HEMATOCRIT 33.7 % (42.0-52.0); HEMOGLOBIN 11.4 g/dl (14.0-18.0); LYMPHOCYTES # 1.4 10^3/ul (0.8-2.9); LYMPHOCYTES % 28.4 % (15.0-51.0); MEAN CORPUSCULAR HEMOGLOBIN 29.7 pg (29.0-33.0); MEAN CORPUSCULAR HGB CONC 33.8 g/dl (32.0-37.0); MEAN CORPUSCULAR VOLUME 87.8 fl (82.0-101.0); MEAN PLATELET VOLUME 10.6 fl (7.4-10.4); MONOCYTE # 0.6 10^3/ul (0.3-0.9); MONOCYTES % 11.6 % (0.0-11.0); NEUTROPHIL # 2.7 10^3/ul (1.6-7.5); NEUTROPHILS % 57.5 % (39.0-77.0); PLATELET COUNT 197 10^3/UL (140-415); RED BLOOD COUNT 3.84 10^6/ul (4.70-6.10); WHITE BLOOD COUNT 4.8 10^3/ul (4.8-10.8)
[2017-07-05 06:52] LABS: INR 1.11; PARTIAL THROMBOPLASTIN TIME 28.1 Sec (25.0-35.0); PROTIME 14.3 Sec (12.2-14.2); PT RATIO 1.1
[2017-07-05 07:13] LABS: CALCIUM 8.2 mg/dl (8.4-10.2); CREATININE 1.07 mg/dl (0.61-1.24); PHOSPHORUS 3.5 mg/dl (2.5-4.9); POTASSIUM 3.7 mmol/L (3.5-5.1)
--- NOTE | 2017-07-05 07:55 | CONS ---
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 at baseline (4) GI bleed Status: Acute Comment: Hct stable... for planned colonoscopy w dr Hernandez later today Qualifiers: GI bleed type/associated pathology: unspecified gastrointestinal hemorrhage type Qualified Code: K92.2 - Gastrointestinal hemorrhage, unspecified gastrointestinal hemorrhage type Consultation Date/Type/Reason Admit Date/Time Jul 03, 2017 at 21:53 Initial Consult Date Type of Consultation: neph 24 HR Interval Summary Free Text/Dictation no complaints... getting cleaned out for colonoscopy later today Exam/Review of Systems Vital Signs Vitals Vital Signs Date Time Temp Pulse Resp B/P Pulse Ox O2 Delivery O2 Flow Rate FiO2 07/05/17 07:45 98.1 58 114/53 07/05/17 04:44 20 97 07/04/17 06:18 Room Air Intake and Output 07/04/17 07/04/17 07/05/17 15:00 23:00 07:00 Intake Total 660 ml 1680 ml Output Total 1200 ml 600 ml Balance -540 ml 1080 ml Exam Constitutional: alert, oriented Respiratory: clear to auscultation Cardiovascular: regular rate and rhythm Gastrointestinal: nl liver, spleen, soft Extremities: edema (none) Results Result Diagram: 07/05/17 0537 07/05/17 0537 Results 24 hrs Laboratory Tests Test 07/04/17 09:26 07/04/17 10:12 07/04/17 12:05 07/04/17 15:59 Bedside Glucose 94 90 Sodium Level 140 Potassium Level 3.5 3.5 Chloride Level 103 Carbon Dioxide Level 28 Anion Gap 13 Blood Urea Nitrogen 18 Creatinine 0.97 Glucose Level 90 Calcium Level 8.6 Test 07/04/17 17:11 07/04/17 20:58 07/05/17 04:46 07/05/17 05:37 Bedside Glucose 171 174 200 White Blood Count 4.8 # Red Blood Count 3.84 L Hemoglobin 11.4 L Hematocrit 33.7 L Mean Corpuscular Volume 87.8 Mean Corpuscular Hemoglobin 29.7 Mean Corpuscular Hemoglobin Concent 33.8 Red Cell Distribution Width 12.0 Platelet Count 197 Mean Platelet Volume 10.6 H Neutrophils % 57.5 Lymphocytes % 28.4 Monocytes % 11.6 H Eosinophils % 1.7 Basophils % 0.6 Nucleated Red Blood Cells % 0.0 Neutrophils # 2.7 Lymphocytes # 1.4 Monocytes # 0.6 Eosinophils # 0.1 Basophils # 0.0 Nucleated Red Blood Cells # 0.0 Prothrombin Time 14.3 H Prothrombin Time Ratio 1.1 INR International Normalized Ratio 1.11 Activated Partial Thromboplast Time 28.1 Sodium Level 139 Potassium Level 3.7 Chloride Level 103 Carbon Dioxide Level 29 Anion Gap 11 Blood Urea Nitrogen 15 Creatinine 1.07 Glucose Level 186 Calcium Level 8.2 L Phosphorus Level 3.5 Magnesium Level 2.0 Medications Medications Current Medications Alprazolam (Xanax) 0.25 mg BID PRN PO ANXIETY Last administered on 07/04/17 00:11; Admin Dose 0.25 MG; Start 07/03/17 at 22:00 Lisinopril (Zestril) 20 mg DAILY PO Last administered on 07/04/17 09:31; Admin Dose 20 MG; Start 07/04/17 at 09:00 Metoprolol Succinate (Toprol Xl) 50 mg BID PO ; Start 07/03/17 at 22:00 Nifedipine (Procardia Xl) 30 mg BID PO Last administered on 07/04/17 21:00; Admin Dose 30 MG; Start 07/04/17 at 09:00 Trazodone HCl (Desyrel) 100 mg QHS PO Last administered on 07/04/17 21:01; Admin Dose 100 MG; Start 07/04/17 at 21:00 Ondansetron HCl (Zofran Inj) 4 mg Q6H PRN IV NAUSEA AND/OR VOMITING; Start at 22:00 Pantoprazole 40 mg 40 mg DAILY@06 IV Last administered on 07/05/17 05:08; Admin Dose 40 MG; Start 07/04/17 at 06:00 Dextrose/Sodium Chloride (D5-NS) 1,000 ml @ 80 mls/hr [id number] IV Last administered on 07/04/17 21:06; Admin Dose 80 MLS/HR; Start 07/03/17 at 22:00 Miscellaneous Information 1 ea NOTE XX ; Start 07/03/17 at 22:30 Glucose (Glutose) 15 gm Q15M PRN PO DECREASED GLUCOSE; Start 07/03/17 at 22:30 Glucose (Glutose) 22.5 gm Q15M PRN PO DECREASED GLUCOSE; Start 07/03/17 at 22: 30 Dextrose (D50w Syringe) 25 ml Q15M PRN IV DECREASED GLUCOSE; Start 07/03/17 at 22:30 Dextrose (D50w Syringe) 50 ml Q15M PRN IV DECREASED GLUCOSE; Start 07/03/17 at 22:30 Glucagon (Glucagen) 1 mg Q15M PRN IM DECREASED GLUCOSE; Start 07/03/17 at 22: 30 Glucose (Glutose) 15 gm Q15M PRN BUCCAL DECREASED GLUCOSE; Start 07/03/17 at 22:30 Acetaminophen (Tylenol Tab) 650 mg Q6H PRN PO PAIN AND OR ELEVATED TEMP; Start 07/04/17 at 08:30 Morphine Sulfate (morphine) 1 mg Q6 PRN IV PAIN LEVEL 4-7 Last administered on 07/05/17 03:40; Admin Dose 1 MG; Start 07/04/17 at 08:30 Insulin Aspart (Novolog Insulin Pen) (Adult SC Insulin - Mild Algorithm)... Q4 SC Last administered on 07/05/17 04:48; Admin Dose 2 UNIT; Start 07/05/17 at 05:00 YESSENIA MANNING MD Jul 05, 2017 07:55
[2017-07-05] MEDS: METOPROLOL (XL) 50 MG TAB PO SCH ×2 (09:00→20:53)
[2017-07-05] MEDS: NIFEdipine (XL) 30 MG TAB PO SCH ×2 (09:00→20:54)
[2017-07-05] MEDS: LISINOPRIL 20 MG TAB PO SCH (09:00)
[2017-07-05] MEDS: DEXTROSE 5%-0.9% NACL 1,000 ML IV SCH ×2 (11:30→13:15)
[2017-07-05] MEDS ORDERED: PROPOFOL 20 ML ONE (17:27)
--- NOTE | 2017-07-05 17:29 | OPPN ---
Date/Time of Note Date/Time of Note DATE: 07/05/17 TIME: 17:25 Proc Note GI Procedure Date 07/05/17 Indication: diagnostic Pre-procedure Diagnosis rectal bleeding Post-procedure Diagnosis proctitis fecal impaction Procedure Performed: Colonoscopy Surgeon see signature line Quality Assurance Director none Anesthesia Type: MAC Anesthesiologist: YONNY LAYTON MD Tourniquet Time none EBL none Transfusion required none Biopsy 1: none Grafts/Implants none Tubes/Drains none Complication(s) none Disposition: PACU, other Procedure Description colonoscopy done under mac proctitis poor prep LUIS VALENCIA MD Jul 05, 2017 17:29
--- NOTE | 2017-07-05 20:18 | GILP ---
DATE OF PROCEDURE: PREOPERATIVE DIAGNOSIS: The patient presenting with history of rectal bleeding, rule out colorectal neoplasm, arteriovenous malformation, diverticulosis. POSTOPERATIVE DIAGNOSES: 1. Proctitis. 2. There is evidence of fecal impaction. DESCRIPTION OF PROCEDURE: After the informed written consent was obtained, the patient was also in the left lateral side. Intravenous anesthesia was given by anesthesiologist, ____. When the pa tient became somnolent, Olympus video colonoscope was introduced into the rectum. Rectum showed sig nificant evidence of proctitis with significant fecal impaction noted. The scope was advanced along side of the stools. After the splenic flexure. more stools noted all along the descending colon. A t this time, the procedure could not be continued because of the poor preparation. Scope was withdr awn and the procedure was terminated. PLAN: Recommend repeat the procedure with a better preparation. Dictated By: LUIS VALENCIA MD NC/NTS Conf#: [id number] DID#: [id number] CC: MCKENNA FERRELL MD; YESSENIA MANNING MD; LAUREN REILLY MD;*[facility]*
[2017-07-05] MEDS: traZODone 50 MG TAB PO SCH (20:53)
[2017-07-06] VITALS (13 sets, daily range): BP systolic 124–190; BP diastolic 59–95; PULSE 50–63; RESP 18–21
[2017-07-06] MEDS: Insulin NOVOLOG SS MILD Algorithm (NPO/TPN/ENTERAL FEEDS) SC SCH ×6 (01:15→20:25)
[2017-07-06] MEDS: PANTOPRAZOLE 40 MG INJ IV SCH (05:10)
[2017-07-06] MEDS: DEXTROSE 5%-0.9% NACL 1,000 ML IV SCH (05:14)
[2017-07-06 07:27] LABS: BASOPHILS % 0.7 % (0.0-2.0); EOSINOPHILS # 0.1 10^3/ul (0.0-0.5); EOSINOPHILS % 1.5 % (0.0-7.0); HEMATOCRIT 34.6 % (42.0-52.0); HEMOGLOBIN 11.7 g/dl (14.0-18.0); LYMPHOCYTES # 1.2 10^3/ul (0.8-2.9); LYMPHOCYTES % 21.3 % (15.0-51.0); MEAN CORPUSCULAR HEMOGLOBIN 29.7 pg (29.0-33.0); MEAN CORPUSCULAR HGB CONC 33.8 g/dl (32.0-37.0); MEAN CORPUSCULAR VOLUME 87.8 fl (82.0-101.0); MEAN PLATELET VOLUME 11.2 fl (7.4-10.4); MONOCYTE # 0.5 10^3/ul (0.3-0.9); MONOCYTES % 8.9 % (0.0-11.0); NEUTROPHIL # 3.9 10^3/ul (1.6-7.5); NEUTROPHILS % 67.4 % (39.0-77.0); PLATELET COUNT 194 10^3/UL (140-415); RED BLOOD COUNT 3.94 10^6/ul (4.70-6.10); WHITE BLOOD COUNT 5.8 10^3/ul (4.8-10.8)
[2017-07-06 07:45] LABS: ALBUMIN 3.1 g/dl (3.3-4.9); ALBUMIN/GLOBULIN RATIO 1.24; BILIRUBIN,INDIRECT 0.4 mg/dl (0-1.1); BILIRUBIN,TOTAL 0.4 mg/dl (0.2-1.3); CALCIUM 8.4 mg/dl (8.4-10.2); CREATININE 0.95 mg/dl (0.61-1.24); POTASSIUM 3.4 mmol/L (3.5-5.1); TOTAL PROTEIN 5.6 g/dl (6.1-8.1)
--- NOTE | 2017-07-06 08:12 | PN ---
Date/Time of Note Date/Time of Note DATE: 07/06/17 TIME: 08:09 Assessment/Plan VTE Prophylaxis VTE Prophylaxis Intervention: other Lines/Catheters IV Catheter Type (from Nrs): Saline Lock Urinary Cath still in place: No Assessment/Plan Assessment/Plan 1. Lower GI bleeding, attempted colonoscopy yesterday->poor prep, rev with GI, will again try on Sunday after aggressive bowel preop as given mental status would be problematic arranging as OP. 2. DM, sugars are reasonable. 3. HBP, control adequate. 4. Mental Retardation 5. Will try to dc eid Subjective 24 Hr Interval Summary Respiratory: No cough, No shortness of breath Cardiovascular: No chest pain, No orthopenea Gastrointestinal: no complaints Genitourinary: other (eid in place) Exam/Review of Systems Vital Signs Vitals Vital Signs Date Time Temp Pulse Resp B/P Pulse Ox O2 Delivery O2 Flow Rate FiO2 07/06/17 08:08 52 07/06/17 07:39 98.6 18 165/74 98 07/05/17 17:52 Room Air 07/05/17 17:35 3.0 Intake and Output 07/05/17 07/05/17 07/06/17 15:00 23:00 07:00 Intake Total 520 ml 240 ml 1100 ml Output Total 550 ml 1700 ml Balance 520 ml -310 ml -600 ml Exam Neck: No jvd Respiratory: clear to auscultation Cardiovascular: regular rate and rhythm Gastrointestinal: soft Extremities: No edema Neurological: No focal weakness Results Result Diagram: 07/06/17 0627 07/06/17626 Results 24 hrs Laboratory Tests Test 07/05/17 09:45 07/05/17 13:09 07/05/17 20:48 07/06/17 01:09 Bedside Glucose 190 175 152 144 Test 07/06/17 05:09 07/06/17 06:27 Bedside Glucose 139 White Blood Count 5.8 # Red Blood Count 3.94 L Hemoglobin 11.7 L Hematocrit 34.6 L Mean Corpuscular Volume 87.8 Mean Corpuscular Hemoglobin 29.7 Mean Corpuscular Hemoglobin Concent 33.8 Red Cell Distribution Width 12.0 Platelet Count 194 Mean Platelet Volume 11.2 H Neutrophils % 67.4 Lymphocytes % 21.3 Monocytes % 8.9 Eosinophils % 1.5 Basophils % 0.7 Nucleated Red Blood Cells % 0.0 Neutrophils # 3.9 Lymphocytes # 1.2 Monocytes # 0.5 Eosinophils # 0.1 Basophils # 0.0 Nucleated Red Blood Cells # 0.0 Sodium Level 142 Potassium Level 3.4 L Chloride Level 107 Carbon Dioxide Level 25 Anion Gap 13 Blood Urea Nitrogen 9 Creatinine 0.95 Glucose Level 128 # Hemoglobin A1c 6.1 H Calcium Level 8.4 Total Bilirubin 0.4 Direct Bilirubin 0.00 Indirect Bilirubin 0.4 Aspartate Amino Transf (AST/SGOT) 20 Alanine Aminotransferase (ALT/SGPT) 23 Alkaline Phosphatase 48 Total Protein 5.6 L Albumin 3.1 L Globulin 2.50 Albumin/Globulin Ratio 1.24 Medications Medications Current Medications Alprazolam (Xanax) 0.25 mg BID PRN PO ANXIETY Last administered on 07/04/17 00:11; Admin Dose 0.25 MG; Start 07/03/17 at 22:00 Lisinopril (Zestril) 20 mg DAILY PO Last administered on 07/04/17 09:31; Admin Dose 20 MG; Start 07/04/17 at 09:00 Metoprolol Succinate (Toprol Xl) 50 mg BID PO Last administered on 07/05/17 20:53; Admin Dose 50 MG; Start 07/03/17 at 22:00 Nifedipine (Procardia Xl) 30 mg BID PO Last administered on 07/05/17 20:54; Admin Dose 30 MG; Start 07/04/17 at 09:00 Trazodone HCl (Desyrel) 100 mg QHS PO Last administered on 07/05/17 20:53; Admin Dose 100 MG; Start 07/04/17 at 21:00 Ondansetron HCl (Zofran Inj) 4 mg Q6H PRN IV NAUSEA AND/OR VOMITING; Start at 22:00 Pantoprazole 40 mg 40 mg DAILY@06 IV Last administered on 07/06/17 05:10; Admin Dose 40 MG; Start 07/04/17 at 06:00 Dextrose/Sodium Chloride (D5-NS) 1,000 ml @ 80 mls/hr [id number] IV Last administered on 07/06/17 05:14; Admin Dose 80 MLS/HR; Start 07/03/17 at 22:00 Miscellaneous Information 1 ea NOTE XX ; Start 07/03/17 at 22:30 Glucose (Glutose) 15 gm Q15M PRN PO DECREASED GLUCOSE; Start 07/03/17 at 22:30 Glucose (Glutose) 22.5 gm Q15M PRN PO DECREASED GLUCOSE; Start 07/03/17 at 22: 30 Dextrose (D50w Syringe) 25 ml Q15M PRN IV DECREASED GLUCOSE; Start 07/03/17 at 22:30 Dextrose (D50w Syringe) 50 ml Q15M PRN IV DECREASED GLUCOSE; Start 07/03/17 at 22:30 Glucagon (Glucagen) 1 mg Q15M PRN IM DECREASED GLUCOSE; Start 07/03/17 at 22: 30 Glucose (Glutose) 15 gm Q15M PRN BUCCAL DECREASED GLUCOSE; Start 07/03/17 at 22:30 Acetaminophen (Tylenol Tab) 650 mg Q6H PRN PO PAIN AND OR ELEVATED TEMP; Start 07/04/17 at 08:30 Morphine Sulfate (morphine) 1 mg Q6 PRN IV PAIN LEVEL 4-7 Last administered on 07/05/17 18:32; Admin Dose 1 MG; Start 07/04/17 at 08:30 Insulin Aspart (Novolog Insulin Pen) (Adult SC Insulin - Mild Algorithm)... Q4 SC Last administered on 07/06/17 01:15; Admin Dose 1 UNIT; Start 07/05/17 at 05:00 Potassium Chloride (Klor-Con 20) 40 meq BID PO ; Start 07/06/17 at 09:00; Stop 07/06/17 at 16:00; Status LAUREN LENNON MD Jul 06, 2017 08:12
[2017-07-06] MEDS: POTASSIUM CHLORIDE (SR) 20 MEQ TAB PO SCH ×2 (08:29→20:26)
[2017-07-06] MEDS: LISINOPRIL 20 MG TAB PO SCH (08:30)
[2017-07-06] MEDS: NIFEdipine (XL) 30 MG TAB PO SCH ×2 (08:30→20:28)
[2017-07-06] MEDS: METOPROLOL (XL) 50 MG TAB PO SCH ×2 (08:31→20:33)
[2017-07-06 12:51] LABS: ADD UMIC YES; UR ASCORBIC ACID NEGATIVE (NEGATIVE); UR BILIRUBIN (Dip) NEGATIVE (NEGATIVE); UR BLOOD (Dip) 1+ mg/dL (NEGATIVE); UR CLARITY CLEAR (CLEAR); UR COLOR YELLOW (YELLOW); UR GLUCOSE (Dip) NEGATIVE (NEGATIVE); UR KETONES (Dip) NEGATIVE (NEGATIVE); UR LEUKOCYTE ESTERASE (Dip) TRACE Leu/ul (NEGATIVE); UR NITRITE (Dip) NEGATIVE (NEGATIVE); UR RBC 1 /HPF (0-5); UR SPECIFIC GRAVITY (Dip) 1.009 (1.003-1.030); UR TOTAL PROTEIN (Dip) NEGATIVE (NEGATIVE); UR UROBILINOGEN (Dip) 1+ mg/dL (NEGATIVE)
[2017-07-06] MEDS: morphine 2 MG INJ IV PRN (14:26)
--- NOTE | 2017-07-06 19:31 | GILP ---
DATE OF PROCEDURE: 07/06/2017 PROCEDURE: Colonoscopy. PREOPERATIVE DIAGNOSIS: Patient presenting with history of rectal bleeding, rule out colorectal varsha plasm, colitis, diverticulosis, etc. POSTOPERATIVE DIAGNOSES: 1. Mild to moderate degree of proctitis. 2. Suboptimal preparation WITH fecal impaction. DESCRIPTION OF PROCEDURE: After the informed written consent was obtained, the patient was asked to lie on the left lateral side. Intravenous anesthesia was given by anesthesiologist. When the juanjose ent became somnolent, the Olympus video colonoscope was introduced into the rectum. Rectum showed e vidence of severe erythema in the rectal area; however, above this area there is evidence of signifi cant fecal material noted. Scope was advanced between the stool in the colon and all the way to the splenic flexure. More stool noted all along the colon. Scope could not be advanced beyond this po int because of the poor preparation. Scope at this time was withdrawn and the procedure was termina sarah. PLAN: Recommend repeating the procedure at a later date. Dictated By: LUIS CAST/ROMMEL Conf#: [id number] DID#: [id number] CC: YESSENIA MANNING MD;*EndCC*
--- NOTE | 2017-07-06 19:40 | CONS ---
DATE OF ADMISSION: 07/03/2017 DATE OF CONSULTATION: 07/06/2017 HISTORY OF PRESENT ILLNESS: The patient is being seen by me before rectal bleeding. Colonoscopy wa s attempted yesterday, which showed evidence of proctitis and fecal impaction. Because of that colo noscopy is deferred for another date after better preparation. PHYSICAL EXAMINATION: GENERAL: The patient is alert. VITAL SIGNS: Temperature 98.5, blood pressure 130/73. ABDOMEN: Exam is unremarkable. LABORATORY WORKUP: Hemoglobin is 11.7. CLINICAL IMPRESSION: Rectal bleeding. The colonoscopy was incomplete yesterday. PLAN: We will prepare the patient with better preparation, and colonoscopy will be repeated. Dictated By: LUIS CAST/ROMMEL Conf#: [id number] DID#: [id number]
[2017-07-06] MEDS: TAMSULOSIN (SR) 0.4 MG CAP PO SCH (20:27)
[2017-07-06] MEDS: traZODone 50 MG TAB PO SCH (20:27)
[2017-07-07] VITALS (12 sets, daily range): BP systolic 92–157; BP diastolic 52–77; PULSE 43–57; RESP 16–20
[2017-07-07] MEDS: Insulin NOVOLOG SS MILD Algorithm (NPO/TPN/ENTERAL FEEDS) SC SCH ×3 (00:59→09:00)
[2017-07-07] MEDS: PANTOPRAZOLE 40 MG INJ IV SCH (06:15)
[2017-07-07 07:23] LABS: BASOPHILS % 0.7 % (0.0-2.0); EOSINOPHILS # 0.1 10^3/ul (0.0-0.5); EOSINOPHILS % 1.7 % (0.0-7.0); HEMATOCRIT 33.1 % (42.0-52.0); HEMOGLOBIN 11.1 g/dl (14.0-18.0); LYMPHOCYTES # 1.1 10^3/ul (0.8-2.9); LYMPHOCYTES % 20.7 % (15.0-51.0); MEAN CORPUSCULAR HEMOGLOBIN 29.4 pg (29.0-33.0); MEAN CORPUSCULAR HGB CONC 33.5 g/dl (32.0-37.0); MEAN CORPUSCULAR VOLUME 87.8 fl (82.0-101.0); MEAN PLATELET VOLUME 11.4 fl (7.4-10.4); MONOCYTE # 0.4 10^3/ul (0.3-0.9); MONOCYTES % 8.2 % (0.0-11.0); NEUTROPHIL # 3.7 10^3/ul (1.6-7.5); NEUTROPHILS % 68.5 % (39.0-77.0); PLATELET COUNT 178 10^3/UL (140-415); RED BLOOD COUNT 3.77 10^6/ul (4.70-6.10); RED CELL DISTRIBUTION WIDTH 12.2 % (11.5-14.5); WHITE BLOOD COUNT 5.4 10^3/ul (4.8-10.8)
[2017-07-07 07:53] LABS: CALCIUM 8.6 mg/dl (8.4-10.2); MAGNESIUM 1.7 mg/dl (1.7-2.5); PHOSPHORUS 3.2 mg/dl (2.5-4.9); POTASSIUM 4.2 mmol/L (3.5-5.1)
[2017-07-07] MEDS: METOPROLOL (XL) 50 MG TAB PO SCH ×2 (09:00→20:18)
[2017-07-07] MEDS: NIFEdipine (XL) 30 MG TAB PO SCH ×2 (09:00→20:18)
[2017-07-07] MEDS: LISINOPRIL 20 MG TAB PO SCH (09:02)
[2017-07-07] MEDS ORDERED: MINERAL OIL 133 ML ENEMA PR ONE (09:30)
[2017-07-07] MEDS ORDERED: MAGNESIUM CITRATE 300 ML BTL PO SCH (09:30)
[2017-07-07] MEDS: ALPRAZOLAM 0.25 MG TAB PO PRN ×2 (09:39→23:18)
--- NOTE | 2017-07-07 10:10 | PN ---
Date/Time of Note Date/Time of Note DATE: 07/07/17 TIME: 10:05 Assessment/Plan VTE Prophylaxis VTE Prophylaxis Intervention: ambulation, SCD's Lines/Catheters IV [facility]from [facility] Saline [facility] Urinary Cath still in place: No Assessment/Plan Problems: (1) GI bleed Status: Acute Comment: nursing working on prep for repeat colon Qualifiers: GI bleed type/associated pathology: unspecified gastrointestinal hemorrhage type Qualified Code: K92.2 - Gastrointestinal hemorrhage, unspecified gastrointestinal hemorrhage type (2) Type 2 diabetes mellitus Comment: excellent diabetes control Subjective 24 Hr Interval Summary Subjective hx not possible: other (feels cold but no fever . In process of prep for repeat colon.) Exam/Review of Systems Vital Signs Vitals Vital Signs Date Time Temp Pulse Resp B/P Pulse Ox O2 Delivery O2 Flow Rate FiO2 07/07/17 08:02 49 07/07/17 07:47 98.0 18 119/58 98 07/05/17 17:52 Room Air 07/05/17 17:35 3.0 Intake and Output 07/06/17 07/06/17 07/07/17 15:00 23:00 07:00 Intake Total 1200 ml 250 ml Output Total 1135 ml Balance 65 ml 250 ml Exam Constitutional: alert Head: normocephalic Respiratory: clear to auscultation Cardiovascular: regular rate and rhythm Gastrointestinal: non-tender, soft Results Result Diagram: 07/07/17 0640 07/07/17 0640 Results 24 hrs Laboratory Tests Test 07/06/17 10:20 07/06/17 12:18 07/06/17 17:25 07/06/17 20:23 Urine Color YELLOW Urine Clarity CLEAR Urine pH 6.0 Urine Specific [place] 1.009 Urine Ketones NEGATIVE Urine Nitrite NEGATIVE Urine Bilirubin NEGATIVE Urine Urobilinogen 1+ H Urine Leukocyte Esterase TRACE A Urine Microscopic RBC 1 Urine Microscopic WBC 3 Urine Hemoglobin 1+ H Urine Glucose NEGATIVE Urine Total Protein NEGATIVE Bedside Glucose 148 158 140 Test 07/07/17 00:39 07/07/17 04:06 07/07/17 06:40 07/07/17 07:48 Bedside Glucose 129 131 130 White Blood Count 5.4 Red Blood Count 3.77 L Hemoglobin 11.1 L Hematocrit 33.1 L Mean Corpuscular Volume 87.8 Mean Corpuscular Hemoglobin 29.4 Mean Corpuscular Hemoglobin Concent 33.5 Red Cell Distribution Width 12.2 Platelet Count 178 Mean Platelet Volume 11.4 H Neutrophils % 68.5 Lymphocytes % 20.7 Monocytes % 8.2 Eosinophils % 1.7 Basophils % 0.7 Nucleated Red Blood Cells % 0.0 Neutrophils # 3.7 Lymphocytes # 1.1 Monocytes # 0.4 Eosinophils # 0.1 Basophils # 0.0 Nucleated Red Blood Cells # 0.0 Sodium Level 140 Potassium Level 4.2 Chloride Level 105 Carbon Dioxide Level 26 Anion Gap 13 Blood Urea Nitrogen 11 Creatinine 1.00 Glucose Level 136 Calcium Level 8.6 Phosphorus Level 3.2 Magnesium Level 1.7 Test 07/07/17 09:01 Bedside Glucose 134 Medications Medications Current Medications Alprazolam (Xanax) 0.25 mg BID PRN PO ANXIETY Last administered on 07/07/17 09:39; Admin Dose 0.25 MG; Start 07/03/17 at 22:00 Lisinopril (Zestril) 20 mg DAILY PO Last administered on 07/07/17 09:02; Admin Dose 20 MG; Start 07/04/17 at 09:00 Metoprolol Succinate (Toprol Xl) 50 mg BID PO Last administered on 07/06/17 20:33; Admin Dose 50 MG; Start 07/03/17 at 22:00 Nifedipine (Procardia Xl) 30 mg BID PO Last administered on 07/06/17 20:28; Admin Dose 30 MG; Start 07/04/17 at 09:00 Trazodone HCl (Desyrel) 100 mg QHS PO Last administered on 07/06/17 20:27; Admin Dose 100 MG; Start 07/04/17 at 21:00 Ondansetron HCl (Zofran Inj) 4 mg Q6H PRN IV NAUSEA AND/OR VOMITING; Start at 22:00 Pantoprazole 40 mg 40 mg DAILY@06 IV Last administered on 07/07/17 06:15; Admin Dose 40 MG; Start 07/04/17 at 06:00 Dextrose/Sodium Chloride (D5-NS) 1,000 ml @ 40 mls/hr Q24H IV Last administered on 07/06/17 05:14; Admin Dose 80 MLS/HR; Start 07/03/17 at 22:00 Miscellaneous Information 1 ea NOTE XX ; Start 07/03/17 at 22:30 Glucose (Glutose) 15 gm Q15M PRN PO DECREASED GLUCOSE; Start 07/03/17 at 22:30 Glucose (Glutose) 22.5 gm Q15M PRN PO DECREASED GLUCOSE; Start 07/03/17 at 22: 30 Dextrose (D50w Syringe) 25 ml Q15M PRN IV DECREASED GLUCOSE; Start 07/03/17 at 22:30 Dextrose (D50w Syringe) 50 ml Q15M PRN IV DECREASED GLUCOSE; Start 07/03/17 at 22:30 Glucagon (Glucagen) 1 mg Q15M PRN IM DECREASED GLUCOSE; Start 07/03/17 at 22: 30 Glucose (Glutose) 15 gm Q15M PRN BUCCAL DECREASED GLUCOSE; Start 07/03/17 at 22:30 Acetaminophen (Tylenol Tab) 650 mg Q6H PRN PO PAIN AND OR ELEVATED TEMP; Start 07/04/17 at 08:30 Morphine Sulfate (morphine) 1 mg Q6 PRN IV PAIN LEVEL 4-7 Last administered on 07/06/17 14:26; Admin Dose 1 MG; Start 07/04/17 at 08:30 Insulin Aspart (Novolog Insulin Pen) (Adult SC Insulin - Mild Algorithm)... Q4 SC Last administered on 07/06/17 17:36; Admin Dose 1 UNIT; Start 07/05/17 at 05:00 Clonidine (Catapres) 0.1 mg TID PO Last administered on 07/06/17 20:28; Admin Dose 0.1 MG; Start 07/06/17 at 12:00 Tamsulosin HCl (Flomax) 0.4 mg HS PO Last administered on 07/06/17 20:27; Admin Dose 0.4 MG; Start 07/06/17 at 21:00 Magnesium Citrate (Citroma) 300 ml ONCE PO Last administered on 07/07/17 09: 42; Admin Dose 300 ML; Start 07/07/17 at 09:30; Stop 07/07/17 at 19:00 Lactulose (Enulose) 30 gm Q3H PO ; Start 07/07/17 at 10:30; Stop 07/07/17 at 19:31 ALANA MCKEON MD Jul 07, 2017 10:10
[2017-07-07] MEDS: LACTULOSE 30ML CUP PO SCH ×4 (10:35→20:16)
[2017-07-07] MEDS: DEXTROSE 5%-0.9% NACL 1,000 ML IV SCH (12:30)
[2017-07-07] MEDS ORDERED: INSULIN ASPART [NOVOLOG] 3 ML PEN SC SCH (12:49)
[2017-07-07] MEDS ORDERED: DICYCLOMINE 10 MG CAP PO PRN (15:30)
[2017-07-07] MEDS: Insulin NOVOLOG SS MILD Algorithm (SS with meals and bedtime) SC SCH ×2 (17:13→21:00)
[2017-07-07] MEDS: LORAZEPAM 2 MG INJ IV PRN (18:54)
[2017-07-07] MEDS: traZODone 50 MG TAB PO SCH (20:16)
[2017-07-07] MEDS: TAMSULOSIN (SR) 0.4 MG CAP PO SCH (20:19)
[2017-07-08] VITALS (12 sets, daily range): BP systolic 128–160; BP diastolic 58–79; PULSE 46–66; RESP 16–20
[2017-07-08] MEDS: ACCUCHECK 2 AM XX SCH (02:00)
[2017-07-08] MEDS: PANTOPRAZOLE 40 MG INJ IV SCH (05:38)
[2017-07-08] MEDS: Insulin NOVOLOG SS MILD Algorithm (SS with meals and bedtime) SC SCH ×4 (07:00→20:43)
[2017-07-08] MEDS: METOPROLOL (XL) 50 MG TAB PO SCH ×2 (09:00→20:45)
[2017-07-08] MEDS: NIFEdipine (XL) 30 MG TAB PO SCH ×2 (09:09→20:45)
[2017-07-08] MEDS: LISINOPRIL 20 MG TAB PO SCH (09:10)
--- NOTE | 2017-07-08 10:28 | PN ---
Date/Time of Note Date/Time of Note DATE: 07/08/17 TIME: 10:25 Assessment/Plan VTE Prophylaxis VTE Prophylaxis Intervention: SCD's Lines/Catheters [facility] Saline Lock Urinary Cath still in place: No Assessment/Plan Problems: (1) GI bleed Status: Acute Comment: no active bleeding and hemoglobin stable. Colon per gi. Qualifiers: GI bleed type/associated pathology: unspecified gastrointestinal hemorrhage type Qualified Code: K92.2 - Gastrointestinal hemorrhage, unspecified gastrointestinal hemorrhage type Subjective 24 Hr Interval Summary Subjective hx not possible: other (agitated when people leave room. He was given iv ativan and prn xanax and presently relaxed. Nursing reports liquid stool and gi to decide when to repeat colon.) Exam/Review of Systems Vital Signs Vitals Vital Signs Date Time Temp Pulse Resp B/P Pulse Ox O2 Delivery O2 Flow Rate FiO2 07/08/17 08:17 97.2 60 16 135/64 99 07/05/17 17:52 Room Air 07/05/17 17:35 3.0 Intake and Output 07/07/17 07/07/17 07/08/17 14:59 22:59 06:59 Intake Total 1080 ml 880 ml Balance 1080 ml 880 ml Exam Constitutional: other (resting) Psych: no complaints Respiratory: clear to auscultation Cardiovascular: regular rate and rhythm Gastrointestinal: soft Results Result Diagram: 07/07/17 0640 07/07/17 0640 Results 24 hrs Laboratory Tests Test 07/07/17 17:03 07/07/17 22:46 07/08/17 07:47 Bedside Glucose 169 155 134 Medications Medications Current Medications Alprazolam (Xanax) 0.25 mg BID PRN PO ANXIETY Last administered on 07/07/17 23:18; Admin Dose 0.25 MG; Start 07/03/17 at 22:00 Lisinopril (Zestril) 20 mg DAILY PO Last administered on 07/08/17 09:10; Admin Dose 20 MG; Start 07/04/17 at 09:00 Metoprolol Succinate (Toprol Xl) 50 mg BID PO Last administered on 07/06/17 20:33; Admin Dose 50 MG; Start 07/03/17 at 22:00 Nifedipine (Procardia Xl) 30 mg BID PO Last administered on 07/08/17 09:09; Admin Dose 30 MG; Start 07/04/17 at 09:00 Trazodone HCl (Desyrel) 100 mg QHS PO Last administered on 07/07/17 20:16; Admin Dose 100 MG; Start 07/04/17 at 21:00 Ondansetron HCl (Zofran Inj) 4 mg Q6H PRN IV NAUSEA AND/OR VOMITING; Start at 22:00 Pantoprazole 40 mg 40 mg DAILY@06 IV Last administered on 07/08/17 05:38; Admin Dose 40 MG; Start 07/04/17 at 06:00 Dextrose/Sodium Chloride (D5-NS) 1,000 ml @ 40 mls/hr Q24H IV Last administered on 07/06/17 05:14; Admin Dose 80 MLS/HR; Start 07/03/17 at 22:00 Miscellaneous Information 1 ea NOTE XX ; Start 07/03/17 at 22:30 Glucose (Glutose) 15 gm Q15M PRN PO DECREASED GLUCOSE; Start 07/03/17 at 22:30 Glucose (Glutose) 22.5 gm Q15M PRN PO DECREASED GLUCOSE; Start 07/03/17 at 22: 30 Dextrose (D50w Syringe) 25 ml Q15M PRN IV DECREASED GLUCOSE; Start 07/03/17 at 22:30 Dextrose (D50w Syringe) 50 ml Q15M PRN IV DECREASED GLUCOSE; Start 07/03/17 at 22:30 Glucagon (Glucagen) 1 mg Q15M PRN IM DECREASED GLUCOSE; Start 07/03/17 at 22: 30 Glucose (Glutose) 15 gm Q15M PRN BUCCAL DECREASED GLUCOSE; Start 07/03/17 at 22:30 Acetaminophen (Tylenol Tab) 650 mg Q6H PRN PO PAIN AND OR ELEVATED TEMP Last administered on 07/07/17 12:17; Admin Dose 650 MG; Start 07/04/17 at 08:30 Morphine Sulfate (morphine) 1 mg Q6 PRN IV PAIN LEVEL 4-7 Last administered on 07/06/17 14:26; Admin Dose 1 MG; Start 07/04/17 at 08:30 Clonidine (Catapres) 0.1 mg TID PO Last administered on 07/07/17 20:19; Admin Dose 0.1 MG; Start 07/06/17 at 12:00 Tamsulosin HCl (Flomax) 0.4 mg HS PO Last administered on 07/07/17 20:19; Admin Dose 0.4 MG; Start 07/06/17 at 21:00 Diagnostic Test (Pha) (Accu-Chek) 1 ea 02 XX ; Start 07/07/17 at 13:00 Insulin Aspart (Novolog Insulin Pen) (Adult SC Insulin - Mild Algorithm)... IACHS SC Last administered on 07/07/17 17:13; Admin Dose 1 UNIT; Start 07/07 at 17:35 Dicyclomine HCl (Bentyl) 10 mg QID PRN PO ABDOMINAL SPASMS Last administered on 07/07/17 15:48; Admin Dose 10 MG; Start 07/07/17 at 15:30 Lorazepam (Ativan) 1 mg Q6H PRN IV agitation and anxiety Last administered on 07/07/17 18:54; Admin Dose 1 MG; Start 07/07/17 at 19:00 ALANA MCKEON MD Jul 08, 2017 10:28
[2017-07-08] MEDS: LORAZEPAM 2 MG INJ IV PRN (10:45)
[2017-07-08] MEDS: DEXTROSE 5%-0.9% NACL 1,000 ML IV SCH (12:30)
[2017-07-08] MEDS ORDERED: PEG/ELECTROLYTES 4L BTL PO ONE (15:00)
[2017-07-08] MEDS ORDERED: MINERAL OIL 133 ML ENEMA PR ONE (15:00)
--- NOTE | 2017-07-08 16:10 | CONS ---
DATE OF ADMISSION: 07/03/2017 DATE OF CONSULTATION: HISTORY OF PRESENT ILLNESS: The patient is unable to give me any history. He presented with rectal bleeding. Previous colonoscopy attempted, which showed proctitis and fecal impaction and then the patient was prepared again and brought to the GI lab again today for a repeat colonoscopy after bett er preparation; however, on rectal exam, he is found to have more stool fecal impaction. PHYSICAL EXAMINATION: ABDOMEN: Unremarkable. CLINICAL IMPRESSION: Rectal bleeding, fecal impaction. PLAN: To prepare the patient better and then do a colonoscopy at a later date. Dictated By: LUIS VALENCIA MD NC/NTS Conf#: [id number] DID#: [id number] CC: LAUREN REILLY MD; YESSENIA MANNING MD;*End*
[2017-07-08] MEDS: LACTULOSE 30ML CUP PO SCH ×2 (18:43→23:37)
[2017-07-08] MEDS: traZODone 50 MG TAB PO SCH (20:44)
[2017-07-08] MEDS: TAMSULOSIN (SR) 0.4 MG CAP PO SCH (20:44)
[2017-07-08] MEDS: ALPRAZOLAM 0.25 MG TAB PO PRN (21:08)
[2017-07-09] VITALS (12 sets, daily range): BP systolic 92–155; BP diastolic 50–82; PULSE 59–109; RESP 18–20
[2017-07-09] MEDS: ACCUCHECK 2 AM XX SCH (02:00)
[2017-07-09] MEDS: LORAZEPAM 2 MG INJ IV PRN ×2 (04:16→20:38)
[2017-07-09] MEDS: PANTOPRAZOLE 40 MG INJ IV SCH (06:07)
[2017-07-09] MEDS: LACTULOSE 30ML CUP PO SCH ×3 (06:07→18:40)
[2017-07-09] MEDS: Insulin NOVOLOG SS MILD Algorithm (SS with meals and bedtime) SC SCH ×4 (07:00→21:00)
--- NOTE | 2017-07-09 07:12 | PN ---
DATE: 07/04/2018 SUBJECTIVE: The patient has no significant complaints. The patient got admitted with rectal bleedi ng. Colonoscopy showed fecal impaction. At this time, patient is being prepared for a repeat colon oscopy. LABORATORY: Potassium is 3.4 today. The hemoglobin is 11.1. PHYSICAL EXAMINATION: GENERAL: The patient is alert, not in distress. VITAL SIGNS: Pulse is 49, blood pressure is 119/58. CARDIOVASCULAR: Normal heart sounds. RESPIRATORY: Normal breath sounds. ABDOMEN: Unremarkable. CLINICAL IMPRESSION: Rectal bleeding. PLAN: Recommend colonoscopy tomorrow. Dictated By: LUIS CAST/ROMMEL Conf#: [id number] DID#: [id number]
--- NOTE | 2017-07-09 07:40 | CONS ---
Date/Time of Note Date/Time of Note DATE: 07/09/17 TIME: 07:38 Assessment/Plan Assessment/Plan Problems: (1) HTN (hypertension) Comment: excellent control on current meds (2) Type 2 diabetes mellitus Comment: excellent control (3) GI bleed Status: Acute Comment: still getting preopped, so procedure delayed... hct is stable, and no abd pain Qualifiers: GI bleed type/associated pathology: unspecified gastrointestinal hemorrhage type Qualified Code: K92.2 - Gastrointestinal hemorrhage, unspecified gastrointestinal hemorrhage type Consultation Date/Type/Reason Admit Date/Time Jul 03, 2017 at 21:53 Type of Consultation: neph 24 HR Interval Summary Free Text/Dictation very sleepy as recently got ativan.. apparently colonoscopy cancelled again due to poor prep Exam/Review of Systems Vital Signs Vitals Vital Signs Date Time Temp Pulse Resp B/P Pulse Ox O2 Delivery O2 Flow Rate FiO2 07/09/17 04:02 98.0 81 20 121/75 93 07/05/17 17:52 Room Air 07/05/17 17:35 3.0 Intake and Output 07/08/17 07/08/17 07/09/17 14:59 22:59 06:59 Intake Total 800 ml Balance 800 ml Exam Head: atraumatic, normocephalic Neck: supple Respiratory: clear to auscultation Cardiovascular: regular rate and rhythm Gastrointestinal: soft Extremities: normal pulses Results Result Diagram: 07/07/17 0640 07/07/17 0640 Results 24 hrs Laboratory Tests Test 07/08/17 07:47 07/08/17 11:40 07/08/17 17:24 07/08/17 20:43 Bedside Glucose 134 151 114 150 Medications Medications Current Medications Alprazolam (Xanax) 0.25 mg BID PRN PO ANXIETY Last administered on 07/08/17 21:08; Admin Dose 0.25 MG; Start 07/03/17 at 22:00 Lisinopril (Zestril) 20 mg DAILY PO Last administered on 07/08/17 09:10; Admin Dose 20 MG; Start 07/04/17 at 09:00 Metoprolol Succinate (Toprol Xl) 50 mg BID PO Last administered on 07/08/17 20:45; Admin Dose 50 MG; Start 07/03/17 at 22:00 Nifedipine (Procardia Xl) 30 mg BID PO Last administered on 07/08/17 20:45; Admin Dose 30 MG; Start 07/04/17 at 09:00 Trazodone HCl (Desyrel) 100 mg QHS PO Last administered on 07/08/17 20:44; Admin Dose 100 MG; Start 07/04/17 at 21:00 Ondansetron HCl (Zofran Inj) 4 mg Q6H PRN IV NAUSEA AND/OR VOMITING; Start at 22:00 Pantoprazole 40 mg 40 mg DAILY@06 IV Last administered on 07/09/17 06:07; Admin Dose 40 MG; Start 07/04/17 at 06:00 Dextrose/Sodium Chloride (D5-NS) 1,000 ml @ 40 mls/hr Q24H IV Last administered on 07/06/17 05:14; Admin Dose 80 MLS/HR; Start 07/03/17 at 22:00 Miscellaneous Information 1 ea NOTE XX ; Start 07/03/17 at 22:30 Glucose (Glutose) 15 gm Q15M PRN PO DECREASED GLUCOSE; Start 07/03/17 at 22:30 Glucose (Glutose) 22.5 gm Q15M PRN PO DECREASED GLUCOSE; Start 07/03/17 at 22: 30 Dextrose (D50w Syringe) 25 ml Q15M PRN IV DECREASED GLUCOSE; Start 07/03/17 at 22:30 Dextrose (D50w Syringe) 50 ml Q15M PRN IV DECREASED GLUCOSE; Start 07/03/17 at 22:30 Glucagon (Glucagen) 1 mg Q15M PRN IM DECREASED GLUCOSE; Start 07/03/17 at 22: 30 Glucose (Glutose) 15 gm Q15M PRN BUCCAL DECREASED GLUCOSE; Start 07/03/17 at 22:30 Acetaminophen (Tylenol Tab) 650 mg Q6H PRN PO PAIN AND OR ELEVATED TEMP Last administered on 07/07/17 12:17; Admin Dose 650 MG; Start 07/04/17 at 08:30 Morphine Sulfate (morphine) 1 mg Q6 PRN IV PAIN LEVEL 4-7 Last administered on 07/06/17 14:26; Admin Dose 1 MG; Start 07/04/17 at 08:30 Clonidine (Catapres) 0.1 mg TID PO Last administered on 07/07/17 20:19; Admin Dose 0.1 MG; Start 07/06/17 at 12:00 Tamsulosin HCl (Flomax) 0.4 mg HS PO Last administered on 07/08/17 20:44; Admin Dose 0.4 MG; Start 07/06/17 at 21:00 Diagnostic Test (Pha) (Accu-Chek) 1 ea 02 XX ; Start 07/07/17 at 13:00 Insulin Aspart (Novolog Insulin Pen) (Adult SC Insulin - Mild Algorithm)... IACHS SC Last administered on 07/08/17 11:51; Admin Dose 1 UNIT; Start 07/07 at 17:35 Dicyclomine HCl (Bentyl) 10 mg QID PRN PO ABDOMINAL SPASMS Last administered on 07/07/17 15:48; Admin Dose 10 MG; Start 07/07/17 at 15:30 Lorazepam (Ativan) 1 mg Q6H PRN IV agitation and anxiety Last administered on 07/09/17 04:16; Admin Dose 1 MG; Start 07/07/17 at 19:00 Lactulose (Enulose) 30 gm Q6 PO Last administered on 07/09/17 06:07; Admin Dose 30 GM; Start 07/08/17 at 18:00 YESSENIA MANNNIG MD Jul 09, 2017 07:40
[2017-07-09] MEDS: NIFEdipine (XL) 30 MG TAB PO SCH ×2 (09:00→20:37)
[2017-07-09] MEDS: LISINOPRIL 20 MG TAB PO SCH (09:00)
[2017-07-09] MEDS: METOPROLOL (XL) 50 MG TAB PO SCH ×2 (09:00→20:38)
[2017-07-09] MEDS: DEXTROSE 5%-0.9% NACL 1,000 ML IV SCH (12:29)
[2017-07-09] MEDS ORDERED: NA PHOSPHATE/BIPHOS 133 ML ENEMA PR PRN (17:30)
[2017-07-09] MEDS ORDERED: PEG/ELECTROLYTES 4L BTL NGT ONE (18:30)
[2017-07-09] MEDS ORDERED: MINERAL OIL 133 ML ENEMA PR ONE (18:30)
[2017-07-09] MEDS: traZODone 50 MG TAB PO SCH (20:36)
[2017-07-09] MEDS: TAMSULOSIN (SR) 0.4 MG CAP PO SCH (20:36)
[2017-07-10] VITALS (16 sets, daily range): BP systolic 106–159; BP diastolic 58–83; PULSE 53–115; RESP 16–21
[2017-07-10] MEDS: LACTULOSE 30ML CUP PO SCH ×5 (00:52→17:12)
[2017-07-10] MEDS: ACCUCHECK 2 AM XX SCH (02:00)
[2017-07-10] MEDS: PANTOPRAZOLE 40 MG INJ IV SCH (05:45)
--- NOTE | 2017-07-10 05:48 | RADRPT ---
PROCEDURE: XR Chest. CLINICAL INDICATION: NG tube placement TECHNIQUE: AP Portable chest. COMPARISON: 04/02/2015 chest x-ray 04/02/[address] FINDINGS: The soft tissues and bones are remarkable for generalized osteopenia, thoracic spondylosis, and bila teral acromioclavicular osteoarthropathy. An NG tube is noted with in the stomach. No focal infiltra canelo, masses or effusions are present. Again noted is the right superior mediastinal prominence umesh tible with a right-sided aortic arch. The heart size is normal. No pneumothorax is present. IMPRESSION: 1. Enteric tube in stomach. 2. 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 Generalized osteopenia , thoracic spondylosis, and bilateral acromioclavicular osteoarthropathy RPTAT: HDC .Luiza Jung MD, Date Time Electronically viewed and signed by .Luiza Jung MD, on 07/10/2017 05:48 .C/
[2017-07-10] MEDS: LORAZEPAM 2 MG INJ IV PRN (08:12)
[2017-07-10] MEDS: Insulin NOVOLOG SS MILD Algorithm (SS with meals and bedtime) SC SCH ×4 (08:13→21:00)
--- NOTE | 2017-07-10 08:16 | CONS ---
Date/Time of Note Date/Time of Note DATE: 07/10/17 TIME: 08:14 Assessment/Plan Assessment/Plan Problems: (1) Type 2 diabetes mellitus Comment: controlled well (2) HTN (hypertension) Comment: controlled (3) GI bleed Status: Acute Comment: getting prepped for colonoscopy, hopefully soon.. per Dr Hernandez.... hct stable Qualifiers: GI bleed type/associated pathology: unspecified gastrointestinal hemorrhage type Qualified Code: K92.2 - Gastrointestinal hemorrhage, unspecified gastrointestinal hemorrhage type (4) Agitation Comment: now w soft restraints due to the NGT Consultation Date/Type/Reason Admit Date/Time Jul 03, 2017 at 21:53 Type of Consultation: neph 24 HR Interval Summary Free Text/Dictation now w NGT in for the prep Exam/Review of Systems Vital Signs Vitals Vital Signs Date Time Temp Pulse Resp B/P Pulse Ox O2 Delivery O2 Flow Rate FiO2 07/10/17 08:06 72 07/10/17 03:59 98.5 20 129/63 95 Intake and Output 07/09/17 07/09/17 07/10/17 15:00 23:00 07:00 Intake Total 440 ml 2200 ml Balance 440 ml 2200 ml Exam Constitutional: alert Psych: no complaints Neck: supple Respiratory: clear to auscultation Cardiovascular: regular rate and rhythm Gastrointestinal: nl liver, spleen, soft Extremities: normal pulses Results Result Diagram: 07/07/17 0640 07/07/17 0640 Results 24 hrs Laboratory Tests Test 07/09/17 08:50 07/09/17 12:27 07/09/17 17:18 07/09/17 21:06 Bedside Glucose 131 162 150 178 Medications Medications Current Medications Alprazolam (Xanax) 0.25 mg BID PRN PO ANXIETY Last administered on 07/08/17 21:08; Admin Dose 0.25 MG; Start 07/03/17 at 22:00 Lisinopril (Zestril) 20 mg DAILY PO Last administered on 07/08/17 09:10; Admin Dose 20 MG; Start 07/04/17 at 09:00 Metoprolol Succinate (Toprol Xl) 50 mg BID PO Last administered on 07/09/17 20:38; Admin Dose 50 MG; Start 07/03/17 at 22:00 Nifedipine (Procardia Xl) 30 mg BID PO Last administered on 07/09/17 20:37; Admin Dose 30 MG; Start 07/04/17 at 09:00 Trazodone HCl (Desyrel) 100 mg QHS PO Last administered on 07/09/17 20:36; Admin Dose 100 MG; Start 07/04/17 at 21:00 Ondansetron HCl (Zofran Inj) 4 mg Q6H PRN IV NAUSEA AND/OR VOMITING; Start at 22:00 Pantoprazole 40 mg 40 mg DAILY@06 IV Last administered on 07/10/17 05:45; Admin Dose 40 MG; Start 07/04/17 at 06:00 Dextrose/Sodium Chloride (D5-NS) 1,000 ml @ 40 mls/hr Q24H IV Last administered on 07/09/17 12:29; Admin Dose 40 MLS/HR; Start 07/03/17 at 22:00 Miscellaneous Information 1 ea NOTE XX ; Start 07/03/17 at 22:30 Glucose (Glutose) 15 gm Q15M PRN PO DECREASED GLUCOSE; Start 07/03/17 at 22:30 Glucose (Glutose) 22.5 gm Q15M PRN PO DECREASED GLUCOSE; Start 07/03/17 at 22: 30 Dextrose (D50w Syringe) 25 ml Q15M PRN IV DECREASED GLUCOSE; Start 07/03/17 at 22:30 Dextrose (D50w Syringe) 50 ml Q15M PRN IV DECREASED GLUCOSE; Start 07/03/17 at 22:30 Glucagon (Glucagen) 1 mg Q15M PRN IM DECREASED GLUCOSE; Start 07/03/17 at 22: 30 Glucose (Glutose) 15 gm Q15M PRN BUCCAL DECREASED GLUCOSE; Start 07/03/17 at 22:30 Acetaminophen (Tylenol Tab) 650 mg Q6H PRN PO PAIN AND OR ELEVATED TEMP Last administered on 07/07/17 12:17; Admin Dose 650 MG; Start 07/04/17 at 08:30 Morphine Sulfate (morphine) 1 mg Q6 PRN IV PAIN LEVEL 4-7 Last administered on 07/06/17 14:26; Admin Dose 1 MG; Start 07/04/17 at 08:30 Clonidine (Catapres) 0.1 mg TID PO Last administered on 07/09/17 20:37; Admin Dose 0.1 MG; Start 07/06/17 at 12:00 Tamsulosin HCl (Flomax) 0.4 mg HS PO Last administered on 07/09/17 20:36; Admin Dose 0.4 MG; Start 07/06/17 at 21:00 Diagnostic Test (Pha) (Accu-Chek) 1 ea 02 XX ; Start 07/07/17 at 13:00 Insulin Aspart (Novolog Insulin Pen) (Adult SC Insulin - Mild Algorithm)... IACHS SC Last administered on 07/09/17 17:22; Admin Dose 1 UNIT; Start 07/07 at 17:35 Dicyclomine HCl (Bentyl) 10 mg QID PRN PO ABDOMINAL SPASMS Last administered on 07/07/17 15:48; Admin Dose 10 MG; Start 07/07/17 at 15:30 Lorazepam (Ativan) 1 mg Q6H PRN IV agitation and anxiety Last administered on 07/09/17 20:38; Admin Dose 1 MG; Start 07/07/17 at 19:00 Lactulose (Enulose) 30 gm Q6 PO Last administered on 07/10/17 05:45; Admin Dose 30 GM; Start 07/08/17 at 18:00 Sodium Biphosphate/ Sodium Phosphate (Fleet Enema) 133 ml DAILY PRN [place] CONSTIPATION; Start 07/09/17 at 17:30 YESSENIA MANNING MD Jul 10, 2017 08:16
[2017-07-10] MEDS: LISINOPRIL 20 MG TAB PO SCH (09:59)
[2017-07-10] MEDS: METOPROLOL (XL) 50 MG TAB PO SCH ×2 (09:59→21:37)
[2017-07-10] MEDS: NIFEdipine (XL) 30 MG TAB PO SCH ×2 (09:59→21:37)
[2017-07-10] MEDS: DEXTROSE 5%-0.9% NACL 1,000 ML IV SCH (12:30)
[2017-07-10] MEDS ORDERED: POTASSIUM CHLORIDE 30 MEQ in DEXTROSE 5% 250 ML IVPB SCH (15:00)
[2017-07-10] MEDS: TAMSULOSIN (SR) 0.4 MG CAP PO SCH (21:37)
[2017-07-10] MEDS: traZODone 50 MG TAB PO SCH (21:37)
[2017-07-11] VITALS (9 sets, daily range): BP systolic 109–138; BP diastolic 55–71; PULSE 47–53; RESP 16–20
[2017-07-11] MEDS: LACTULOSE 30ML CUP PO SCH ×3 (00:41→12:00)
[2017-07-11] MEDS: ACCUCHECK 2 AM XX SCH (02:30)
[2017-07-11] MEDS: PANTOPRAZOLE 40 MG INJ IV SCH (05:58)
[2017-07-11] MEDS: Insulin NOVOLOG SS MILD Algorithm (SS with meals and bedtime) SC SCH ×2 (06:55→11:30)
--- NOTE | 2017-07-11 07:55 | PN ---
Date/Time of Note Date/Time of Note DATE: 07/11/17 TIME: 07:53 Assessment/Plan VTE Prophylaxis VTE Prophylaxis Intervention: other Lines/Catheters IV Catheter Type (from Nrs): Peripheral IV Urinary Cath still in place: No Assessment/Plan Assessment/Plan 1. BRB/rectum without further episodes outpt colonoscopy to be considered, Hct is stable 2. BP controlled 3. DM, sugars acceptable 4. Plan to dc today with op follow up with Dr. Mock. Subjective 24 Hr Interval Summary Respiratory: No cough, No shortness of breath Cardiovascular: No chest pain, No lightheadedness Gastrointestinal: no complaints Genitourinary: no complaints Exam/Review of Systems Vital Signs Vitals Vital Signs Date Time Temp Pulse Resp B/P Pulse Ox O2 Delivery O2 Flow Rate FiO2 07/11/17 04:39 97.6 52 16 119/71 99 07/10/17 14:30 Room Air Intake and Output 07/10/17 07/10/17 07/11/17 15:00 23:00 07:00 Intake Total 2100 ml 500 ml Balance 2100 ml 500 ml Exam Respiratory: clear to auscultation Cardiovascular: regular rate and rhythm Gastrointestinal: soft Extremities: clubbing, No edema (and no calf tend) Results Result Diagram: 07/07/17 0640 07/10/17 1153 Results 24 hrs Laboratory Tests Test 07/10/17 08:06 07/10/17 11:53 07/10/17 12:55 07/10/17 17:10 Bedside Glucose 155 153 208 Potassium Level 3.1 L Test 07/10/17 21:39 07/11/17 02:37 07/11/17 06:53 Bedside Glucose 175 165 168 Medications Medications Current Medications Alprazolam (Xanax) 0.25 mg BID PRN PO ANXIETY Last administered on 07/08/17 21:08; Admin Dose 0.25 MG; Start 07/03/17 at 22:00 Lisinopril (Zestril) 20 mg DAILY PO Last administered on 07/10/17 09:59; Admin Dose 20 MG; Start 07/04/17 at 09:00 Metoprolol Succinate (Toprol Xl) 50 mg BID PO Last administered on 07/10/17 21:37; Admin Dose 50 MG; Start 07/03/17 at 22:00 Nifedipine (Procardia Xl) 30 mg BID PO Last administered on 07/10/17 21:37; Admin Dose 30 MG; Start 07/04/17 at 09:00 Trazodone HCl (Desyrel) 100 mg QHS PO Last administered on 07/10/17 21:37; Admin Dose 100 MG; Start 07/04/17 at 21:00 Ondansetron HCl (Zofran Inj) 4 mg Q6H PRN IV NAUSEA AND/OR VOMITING; Start at 22:00 Pantoprazole 40 mg 40 mg DAILY@06 IV Last administered on 07/11/17 05:58; Admin Dose 40 MG; Start 07/04/17 at 06:00 Dextrose/Sodium Chloride (D5-NS) 1,000 ml @ 40 mls/hr Q24H IV Last administered on 07/09/17 12:29; Admin Dose 40 MLS/HR; Start 07/03/17 at 22:00 Miscellaneous Information 1 ea NOTE XX ; Start 07/03/17 at 22:30 Glucose (Glutose) 15 gm Q15M PRN PO DECREASED GLUCOSE; Start 07/03/17 at 22:30 Glucose (Glutose) 22.5 gm Q15M PRN PO DECREASED GLUCOSE; Start 07/03/17 at 22: 30 Dextrose (D50w Syringe) 25 ml Q15M PRN IV DECREASED GLUCOSE; Start 07/03/17 at 22:30 Dextrose (D50w Syringe) 50 ml Q15M PRN IV DECREASED GLUCOSE; Start 07/03/17 at 22:30 Glucagon (Glucagen) 1 mg Q15M PRN IM DECREASED GLUCOSE; Start 07/03/17 at 22: 30 Glucose (Glutose) 15 gm Q15M PRN BUCCAL DECREASED GLUCOSE; Start 07/03/17 at 22:30 Acetaminophen (Tylenol Tab) 650 mg Q6H PRN PO PAIN AND OR ELEVATED TEMP Last administered on 07/07/17 12:17; Admin Dose 650 MG; Start 07/04/17 at 08:30 Morphine Sulfate (morphine) 1 mg Q6 PRN IV PAIN LEVEL 4-7 Last administered on 07/06/17 14:26; Admin Dose 1 MG; Start 07/04/17 at 08:30 Clonidine (Catapres) 0.1 mg TID PO Last administered on 07/10/17 21:36; Admin Dose 0.1 MG; Start 07/06/17 at 12:00 Tamsulosin HCl (Flomax) 0.4 mg HS PO Last administered on 07/10/17 21:37; Admin Dose 0.4 MG; Start 07/06/17 at 21:00 Diagnostic Test (Pha) (Accu-Chek) 1 ea 02 XX Last administered on 07/11/17 02 :30; Admin Dose 1 EA; Start 07/07/17 at 13:00 Insulin Aspart (Novolog Insulin Pen) (Adult SC Insulin - Mild Algorithm)... IACHS SC Last administered on 07/11/17 06:55; Admin Dose 1 UNIT; Start 07/07 at 17:35 Dicyclomine HCl (Bentyl) 10 mg QID PRN PO ABDOMINAL SPASMS Last administered on 07/07/17 15:48; Admin Dose 10 MG; Start 07/07/17 at 15:30 Lorazepam (Ativan) 1 mg Q6H PRN IV agitation and anxiety Last administered on 07/10/17 08:12; Admin Dose 1 MG; Start 07/07/17 at 19:00 Lactulose (Enulose) 30 gm Q6 PO Last administered on 07/11/17 05:59; Admin Dose 30 GM; Start 07/08/17 at 18:00 Sodium Biphosphate/ Sodium Phosphate (Fleet Enema) 133 ml DAILY PRN [place] CONSTIPATION; Start 07/09/17 at 17:30 LAUREN REILLY MD Jul 11, 2017 07:55
[2017-07-11 08:12] LABS: BASOPHILS % 0.3 % (0.0-2.0); EOSINOPHILS # 0.1 10^3/ul (0.0-0.5); EOSINOPHILS % 1.3 % (0.0-7.0); HEMATOCRIT 31.3 % (42.0-52.0); HEMOGLOBIN 10.5 g/dl (14.0-18.0); LYMPHOCYTES # 1.1 10^3/ul (0.8-2.9); LYMPHOCYTES % 17.2 % (15.0-51.0); MEAN CORPUSCULAR HEMOGLOBIN 29.7 pg (29.0-33.0); MEAN CORPUSCULAR HGB CONC 33.5 g/dl (32.0-37.0); MEAN CORPUSCULAR VOLUME 88.4 fl (82.0-101.0); MEAN PLATELET VOLUME 10.8 fl (7.4-10.4); MONOCYTE # 0.5 10^3/ul (0.3-0.9); MONOCYTES % 8.5 % (0.0-11.0); NEUTROPHIL # 4.5 10^3/ul (1.6-7.5); NEUTROPHILS % 72.4 % (39.0-77.0); PLATELET COUNT 171 10^3/UL (140-415); RED BLOOD COUNT 3.54 10^6/ul (4.70-6.10); RED CELL DISTRIBUTION WIDTH 12.2 % (11.5-14.5); WHITE BLOOD COUNT 6.2 10^3/ul (4.8-10.8)
[2017-07-11 08:35] LABS: ALBUMIN/GLOBULIN RATIO 1.11; BILIRUBIN,INDIRECT 0.3 mg/dl (0-1.1); BILIRUBIN,TOTAL 0.3 mg/dl (0.2-1.3); CALCIUM 8.4 mg/dl (8.4-10.2); CREATININE 0.98 mg/dl (0.61-1.24); POTASSIUM 3.4 mmol/L (3.5-5.1); TOTAL PROTEIN 5.7 g/dl (6.1-8.1)
[2017-07-11] MEDS: NIFEdipine (XL) 30 MG TAB PO SCH (09:00)
[2017-07-11] MEDS: METOPROLOL (XL) 50 MG TAB PO SCH (09:00)
[2017-07-11] MEDS: LISINOPRIL 20 MG TAB PO SCH (09:00)
[2017-07-11] MEDS ORDERED: POTASSIUM CHLORIDE (SR) 20 MEQ TAB PO STA (09:26)
[2017-07-11] MEDS: DEXTROSE 5%-0.9% NACL 1,000 ML IV SCH (12:30)
--- NOTE | 2017-07-16 13:43 | DS ---
DATE OF ADMISSION: 07/03/2017 DATE OF DISCHARGE: 07/11/2017 HISTORY OF PRESENT ILLNESS: This 76-year-old male admitted with constipation and rectal bleeding wi th known mental retardation. PERTINENT PHYSICAL EXAMINATION VITAL SIGNS: Normal. CARDIOPULMONARY: Unrevealing. GASTROINTESTINAL: Unrevealing. RECTAL EXAM: Revealed trace brown stool on the examining finger. There was no bright red blood per rectum. LABORATORY AND DIAGNOSTIC STUDIES: On admission, hematocrit was 33.8, on discharge 31.3, white coun t and platelet count were normal. Chemistries were unrevealing with creatinine being 1.14, iron sat uration was 19%, ferritin 77.4, lipase 159, phosphorus and magnesium were normal. Hemoglobin A1c wa s 6.1. Protime and PTT were normal. Urine revealed 1+ hemoglobin, 3+ white blood cells, 1 red cell (uncertain whether this was obtained with a Silveira catheter in place). Urine culture revealed coag negative staph. CT of the abdomen and pelvis revealed no evidence of diverticulitis or appendicitis . There was mild bilateral hydroureter and urinary bladder distention status post radical prostatec isaias. HOSPITAL COURSE: Included attempting to prep the patient so that a colonoscopy could be performed. Despite this endeavor during this hospital stay, an adequate prep could not be obtained. His sugar s remained adequately controlled during his hospitalization on AC short-acting insulin coverage. At time of discharge, he was stable, but because of his bleeding, was unclear. Silveira catheter was rem lupe prior to discharge. He did have moderate residuals 200 to 300 prior to discharge. Flomax was instituted. DISCHARGE DIAGNOSES: 1. Lower gastrointestinal bleeding, cause unclear. Will need outpatient prep and again an attempte d colonoscopy. 2. Urinary retention. Flomax will be continued. Outpatient urologic evaluation will be needed pen ding postvoid bladder residuals. 3. Known mental retardation. MEDICATIONS ON DISCHARGE: Include: 1. Xanax 0.25 b.i.d. 2. Glipizide 5 mg before breakfast. 3. Lisinopril 40 mg per day. 4. Metformin 500 mg b.i.d. 5. Metoprolol 100 mg per day. 6. Nifedipine 30 mg per day. 7. Trazodone 100 mg h.s. DIET: 1800 calorie ADA diet. Dictated By: LAUREN REILLY MD MR/NTS Conf#: [id number] [facility]#: [id number]
== END 2017-07-11 15:00 | disposition home or self-care (01) | DRG 378 ==
LOC: E/R 17:46 → MS3 21:53 → MS4 07-04 08:00
PROVIDERS: ADMIT Internal Medicine; ATTEND Internal Medicine
PROC: 0DJD8ZZ Inspection of Lower Intestinal Tract, Via Natural or Artificial Opening Endoscopic (ICD-10-PCS; principal; 2017-07-05 17:00)
DX: K92.2 Gastrointestinal hemorrhage, unspecified (principal); F84.0 Autistic disorder; E11.22 Type 2 diabetes mellitus with diabetic chronic kidney disease; I12.9 Hypertensive chronic kidney disease with stage 1 through stage 4 chronic kidney disease, or unspecified chronic kidney disease; N18.2 Chronic kidney disease, stage 2 (mild); K62.89 Other specified diseases of anus and rectum; K56.41 Fecal impaction; Z86.73 Personal history of transient ischemic attack (TIA), and cerebral infarction without residual deficits; Z90.79 Acquired absence of other genital organ(s); R45.1 Restlessness and agitation; Z78.1 Physical restraint status
CPT/HCPCS: 36415; 71010; 74176; 80048; 80053; 81001; 82728; 82962; 83036; 83540; 83690; 83735; 84100; 84132; 84484; 85025; 85610; 85730; 86850; 86900; 86901; 87086; 93005; 96374; 96376; 97162; 97530; C9113; J1815; J2060; J2270; J3475; J7030; J7042; J7070

== ENCOUNTER 2017-10-10 10:36 | Emergency (ER) | END 2017-10-10 19:50 | disposition short-term general hospital (02) ==

== ENCOUNTER 2018-02-11 11:33 | Emergency (ER) | END 2018-02-11 18:20 | disposition home or self-care (01) ==

== ENCOUNTER 2018-02-12 01:10 | Emergency (ER) | END 2018-02-12 07:21 | disposition home or self-care (01) ==

== ENCOUNTER 2018-03-18 10:42 | Inpatient (IN) | END 2018-03-29 18:34 | DRG 689 ==

== ENCOUNTER 2018-05-09 16:47 | Emergency (ER) | END 2018-05-09 21:30 | disposition home or self-care (01) ==

== ENCOUNTER 2018-05-18 18:03 | Inpatient (IN) | END 2018-06-12 16:45 | DRG 871 ==